=== PATIENT | male | born 1945 | race Caucasian/White ===

== ENCOUNTER → 2017-01-16 | Outpatient (CLI) | payer OTHER, MEDICARE ==
[~2017-01-16] MED LIST: AMLO-110 PO; ASCO10003 PO; ASPI81TA28 PO; CALC-51 PO; CHOL200010 PO; COEN1CAP37 PO; CYAN10004 PO; FLAX12003 PO; INSDGI SQ; LOSA1TAB38 PO; LPT/40 PO; NITR0.4S UT; NRN/300 PO; NVLGI SC; OMEG10007 PO; POTA10CA28 PO; PRT/20 PO; RXC5 PO; TRAZ50TA35 PO; TRIATAB3 PO; VITA400C15 PO
[2017-01-16 13:10] LABS: HEMATOCRIT 44.4 % (42-52); MEAN CELL VOLUME 85.1 fL (80-100); MEAN CORPUSCULAR HEMOGLOBIN 30.1 pg (25-34); RED BLOOD COUNT 5.22 M/uL (4.7-6.1); WHITE BLOOD COUNT 10.44 K/uL (4.8-10.8)
[2017-01-16 13:17] LABS: ALT/SGPT 33 U/L (12-78); AST/SGOT 29 U/L (15-37); BLOOD UREA NITROGEN 21 mg/dl (7-18); BUN/CREATININE RATIO 15.8 (10-20); CALCIUM 9.2 mg/dl (8.5-10.1); CARBON DIOXIDE 31 mmol/L (21-32); CHLORIDE 105 mmol/L (98-107); GLUCOSE 147 mg/dl (70-99); POTASSIUM 3.7 mmol/L (3.5-5.1); SODIUM 141 mmol/L (136-145)
[2017-01-16 13:18] LABS: ALB/GLOB RATIO 0.8 (0.9-2); ALKALINE PHOSPHATASE 94 U/L (45-117)
[2017-01-16 13:25] LABS: MEAN CORPUSCULAR HGB CONC 35.4 g/dl (32-36); PLATELET COUNT 27 K/uL (130-400)
[2017-01-16 13:30] LABS: BASO % 0.3 %; BASO ABS # 0.03 K/uL (0-0.2); COMPLETE YES; EOS % 4.2 %; IG% 0.5 %; LYMPH % 27.6 %; LYMPH ABS # 2.88 K/uL (1.2-3.4); NEUT % 59.4 %; PLT ESTIMATE SIGNIFIC DECREASED
== END | disposition home or self-care (01) ==
LOC: C.LABPVFM 10:40
PROVIDERS: ATTEND Family Medicine
DX: E11.9 Type 2 diabetes mellitus without complications (principal)

== ENCOUNTER → 2017-01-26 | Outpatient (CLI) | payer OTHER, MEDICARE ==
--- NOTE | 2017-01-26 15:07 | DIAGNOSTIC IMAGING REPORT ---
LEFT HAND 3 VIEWS HISTORY: Cellulitis COMPARISON: None. FINDINGS: There is no fracture or dislocation. Diffuse soft tissue swelling. This is most pronounced along the dorsum of the hand. Moderate degenerative changes within the DIP joints. No radiographic evidence for osteomyelitis. No radiopaque foreign bodies. IMPRESSION: Diffuse soft tissue swelling within the left hand. This is most pronounced along the dorsum of the hand. Electronically signed by: All Schultz M.D. 01/26/2017 3:04 PM Dictated Date/Time: 01/26/2017 3:03 PM
== END | disposition home or self-care (01) ==
LOC: C.RAD 14:16
PROVIDERS: ATTEND Family Medicine
DX: L03.90 Cellulitis, unspecified (principal)

== ENCOUNTER → 2017-02-15 | Day surgery (SDC) | payer OTHER, MEDICARE ==
[2017-02-01 10:33] VITALS: Ht 170.2 cm; Wt 113.6 kg
[~2017-02-15] VITALS: Ht 170.2 cm; Wt 113.6 kg
[~2017-02-15] MED LIST changes: +LIDOCAINE HCL 2% 2 ML VIAL (20MG/ML) ONE; +PROPOFOL IV EMULSION 10 MG/ML 20 ML VIAL IV ONE; -RXC5 PO; +SODIUM CHLORIDE 0.9% 500ML 500 ML IV ONE
--- NOTE | 2017-02-15 14:53 | Endo History and Physical ---
History & Physical Date of Service: February 15, 2017. Chief Complaint: ACID RELUX, DYSPHAGIA Referring Physician: DR FISH History of Present Illness dysphagia Past Surgical History Hx Cardiac Surgery: Yes (HEART CATH-1 STENT PLACED) Hx Internal Defibrillator: No Hx Pacemaker: No Hx Abdominal Surgery: Yes (APPY) Hx of Implantable Prosthesis: No Hx Post-Op Nausea and Vomiting: No Hx Cancer Surgery: Yes (SKIN REMOVED FROM NOSE) Hx Thoracic Surgery: No Hx Orthopedic: No Hx Urinary Tract Surgery: Yes (VASECTOMY) Family History Colon CA Social History Smoking Status: Former Smoker Hx Substance Use: No Hx Alcohol Use: Yes (OCCASIONALLY) Allergies Coded Allergies: Lisinopril (Verified Allergy, Mild, COUGH, 02/15/17) Immune Globulin (Verified Adverse Reaction, Intermediate, GAMUNEX- SHAKING , CHILLS, FEVER, 02/15/17) Current Medications Reported Home Medications Medications Dose Route/Sig Max Daily Dose Days Date Category Dose Instructions Protonix (Pantoprazole Sodium) 20 Mg Tab 20 Mg PO QAM 02/01/17 Reported Triamterene/Hctz 37.5-25MG (Triamterene/HCTZ) 1 Tab Tab 1 Tab PO QAM 07/07/16 Reported Calcium (Calcium Carbonate-Vitamin D) 1 Tab Tab 1 Tab PO QAM 07/06/16 Reported Co Q-10 (Coenzyme Q10 (Ubidecarenone)) 200 Mg Cap 200 Mg PO NOON 07/06/16 Reported Flaxseed Oil (Flaxseed (Linseed)) 1 Cap Cap 1 Cap PO HS 07/06/16 Reported Vitamin E (ir-Epnjo-Dbxrfdoywv Acetate) 400 Inter.unit Cap 400 Inter.unit PO DINNER 07/06/16 Reported Vitamin B-12 1000 Mcg (Cyanocobalamin) 1,000 Mcg Tab 1,000 Mcg PO NOON 07/06/16 Reported Vitamin D (Cholecalciferol) 2,000 Unit Cap 2,000 Intunit PO DINNER 07/06/16 Reported Micro-K Ext Rel (Potassium Chloride) 10 Meq Capcr 10 Meq PO NOON 07/06/16 Reported Trazodone (Trazodone HCl) 50 Mg Tab 25 Mg PO HS PRN 07/06/16 Reported Norvasc (Amlodipine Besylate) 5 Mg Tab 5 Mg PO QAM 9/21/16 Reported Cozaar (Losartan Potassium) 100 Mg Tab 100 Mg PO QAM 07/06/16 Reported Lipitor (Atorvastatin) 40 Mg Tab 40 Mg PO HS 07/06/16 Reported Aspirin Ec (Aspirin) 81 Mg Tab 81 Mg PO HS 08/29/15 Reported Vitamin C (Ascorbic Acid) 1,000 Mg Tab 1,000 Mg PO NOON 12/19/13 Reported Novolog (Insulin Aspart) 100 Unit/ Inj 0 SC UD 12/19/13 Reported TAKE BEFORE MEALS PER SLIDING SCALE. Lantus (Insulin Glargine) Vial 35 Units SQ BID 12/19/13 Reported Neurontin (Gabapentin) 300 Mg Cap 600 Mg PO TID 12/19/13 Reported Nitrostat (Nitroglycerin) 0.4 Mg Sub 0.4 Mg UT PRN 12/19/13 Reported [place]-3 (Fish Oil) 1 Ea Cap 1 Cap PO TID 06/13/09 Reported Vital Signs Weight (Kilograms): 113.64 Height (Feet): 5 Height (Inches): 7 Date Time Temp Pulse Resp B/P Pulse Ox O2 Delivery O2 Flow Rate FiO2 02/15/17 13:59 36.4 62 20 153/70 96 Room Air Physical Exam AAO x3 Nl s1s2 Lungs CTA Abd soft NT/ND + BS - CCE Assessment and Plan EGD/dilation
--- NOTE | 2017-02-15 15:02 | Discharge Instructions ---
Endoscopy Patient Instructions Date / Procedure(s) Performed February 15, 2017. EGD Allergy Information Coded Allergies: Lisinopril (Verified Allergy, Mild, COUGH, 02/15/17) Immune Globulin (Verified Adverse Reaction, Intermediate, GAMUNEX- SHAKING , CHILLS, FEVER, 02/15/17) Discharge Date / Findings February 15, 2017. gastritis Medication Instructions Stopped Medication(s): ASPIRIN 81MG 02/14/17 Restart Stopped Medication(s): Reported Home Medications Medications Dose Route/Sig Max Daily Dose Days Date Category Dose Instructions Protonix (Pantoprazole Sodium) 20 Mg Tab 20 Mg PO QAM 02/01/17 Reported Triamterene/Hctz 37.5-25MG (Triamterene/HCTZ) 1 Tab Tab 1 Tab PO QAM 07/07/16 Reported Calcium (Calcium Carbonate-Vitamin D) 1 Tab Tab 1 Tab PO QAM 07/06/16 Reported Co Q-10 (Coenzyme Q10 (Ubidecarenone)) 200 Mg Cap 200 Mg PO NOON 07/06/16 Reported Flaxseed Oil (Flaxseed (Linseed)) 1 Cap Cap 1 Cap PO HS 07/06/16 Reported Vitamin E (qb-Xdntq-Utvbxesmew Acetate) 400 Inter.unit Cap 400 Inter.unit PO DINNER 07/06/16 Reported Vitamin B-12 1000 Mcg (Cyanocobalamin) 1,000 Mcg Tab 1,000 Mcg PO NOON 07/06/16 Reported Vitamin D (Cholecalciferol) 2,000 Unit Cap 2,000 Intunit PO DINNER 07/06/16 Reported Micro-K Ext Rel (Potassium Chloride) 10 Meq Capcr 10 Meq PO NOON 07/06/16 Reported Trazodone (Trazodone HCl) 50 Mg Tab 25 Mg PO HS PRN 07/06/16 Reported Norvasc (Amlodipine Besylate) 5 Mg Tab 5 Mg PO QAM 07/06/16 Reported Cozaar (Losartan Potassium) 100 Mg Tab 100 Mg PO QAM 07/06/16 Reported Lipitor (Atorvastatin) 40 Mg Tab 40 Mg PO HS 07/06/16 Reported Aspirin Ec (Aspirin) 81 Mg Tab 81 Mg PO HS 08/29/15 Reported Vitamin C (Ascorbic Acid) 1,000 Mg Tab 1,000 Mg PO NOON 12/19/13 Reported Novolog (Insulin Aspart) 100 Unit/ Inj 0 SC UD 12/19/13 Reported TAKE BEFORE MEALS PER SLIDING SCALE. Lantus (Insulin Glargine) Vial 35 Units SQ BID 12/19/13 Reported Neurontin (Gabapentin) 300 Mg Cap 600 Mg PO TID 12/19/13 Reported Nitrostat (Nitroglycerin) 0.4 Mg Sub 0.4 Mg UT PRN 12/19/13 Reported [place]-3 (Fish Oil) 1 Ea Cap 1 Cap PO TID 06/13/09 Reported Increase Protonix to 40 mg daily Reported Home Medications Medications Dose Route/Sig Max Daily Dose Days Date Category Dose Instructions Protonix (Pantoprazole Sodium) 20 Mg Tab 20 Mg PO QAM 02/01/17 Reported Triamterene/Hctz 37.5-25MG (Triamterene/HCTZ) 1 Tab Tab 1 Tab PO QAM 07/07/16 Reported Calcium (Calcium Carbonate-Vitamin D) 1 Tab Tab 1 Tab PO QAM 07/06/16 Reported Co Q-10 (Coenzyme Q10 (Ubidecarenone)) 200 Mg Cap 200 Mg PO NOON 07/06/16 Reported Flaxseed Oil (Flaxseed (Linseed)) 1 Cap Cap 1 Cap PO HS 07/06/16 Reported Vitamin E (pr-Xpyzl-Hcioolhjtl Acetate) 400 Inter.unit Cap 400 Inter.unit PO DINNER 07/06/16 Reported Vitamin B-12 1000 Mcg (Cyanocobalamin) 1,000 Mcg Tab 1,000 Mcg PO NOON 07/06/16 Reported Vitamin D (Cholecalciferol) 2,000 Unit Cap 2,000 Intunit PO DINNER 07/06/16 Reported Micro-K Ext Rel (Potassium Chloride) 10 Meq Capcr 10 Meq PO NOON 07/06/16 Reported Trazodone (Trazodone HCl) 50 Mg Tab 25 Mg PO HS PRN 07/06/16 Reported Norvasc (Amlodipine Besylate) 5 Mg Tab 5 Mg PO QAM 07/06/16 Reported Cozaar (Losartan Potassium) 100 Mg Tab 100 Mg PO QAM 07/06/16 Reported Lipitor (Atorvastatin) 40 Mg Tab 40 Mg PO HS 07/06/16 Reported Aspirin Ec (Aspirin) 81 Mg Tab 81 Mg PO HS 08/29/15 Reported Vitamin C (Ascorbic Acid) 1,000 Mg Tab 1,000 Mg PO NOON 12/19/13 Reported Novolog (Insulin Aspart) 100 Unit/ Inj 0 SC UD 12/19/13 Reported TAKE BEFORE MEALS PER SLIDING SCALE. Lantus (Insulin Glargine) Vial 35 Units SQ BID 12/19/13 Reported Neurontin (Gabapentin) 300 Mg Cap 600 Mg PO TID 12/19/13 Reported Nitrostat (Nitroglycerin) 0.4 Mg Sub 0.4 Mg UT PRN 12/19/13 Reported [place]-3 (Fish Oil) 1 Ea Cap 1 Cap PO TID 06/13/09 Reported Increase Protonix to 40 mg daily Provider Instructions Activity Restrictions - No exercising or heavy lifting for 24 hours. - Do not drink alcohol the day of the procedure. - Do not drive a car or operate machinery until the day after the procedure. - Do not make any important decisions or sign important papers in 24 hours after the procedure. Following Day: - Return to full activity which may include returning to work/school. Diet Start your diet with liquids and light foods (jello, soup, juice, toast). Then eat your usual diet if not nauseated. Treatment For Common After Affects For mild abdominal pain, bloating, or excessive gas: - Rest - Eat lightly - Lie on right side Follow-Up Information Follow-up with DR FISH as scheduled Anesthesia Information What You Should Know You have had a procedure that required some medicine to reduce anxiety and discomfort. This treatment is called moderate sedation. After receiving the treatment, you may be sleepy, but you will be able to breathe on your own. The effects of the treatment may last for several hours. Follow these instructions along with Activity/Diet recommendations noted above: * Do NOT do anything where dizziness or clumsiness would be dangerous. * Rest quietly at home today, then you can be up and about tomorrow. * Have a responsible person stay with you the rest of today. * You may have had an I.V. today. If so, you may take the dressing off later today. Recommendations Call your doctor if: * Trouble breathing * Continuous vomiting for more than 24 hours * Temperature above 101 degrees * Severe abdominal pain or bloating * Pain not relieved by pain medicine ordered * There is increased drainage or redness from any incision * A large amount of rectal bleeding greater than 2-3 tablespoons. (If you had a polyp/s removed or have hemorrhoids, a small amount of blood - from the rectum is to be expected.) * You have any unanswered questions or concerns. IN THE EVENT OF A SERIOUS EMERGENCY, GO TO THE NEAREST EMERGENCY ROOM Your discharge instructions were prepared by provider Juvenal Huber. Patient Instructions Signature Page Dave Bowlesbrittney Patient (or Guardian) Signature/Date: I have read and understand the instructions given to me by my caregivers. Caregiver/RN/Doctor Signature/Date: The above-named patient and/or guardian has received patient instructions on this date. + Original Patient Signature Page (only) stays with chart. Please make copy for patient.
--- NOTE | 2017-02-15 15:09 | GI REPORT ---
Procedure Date: 02/15/2017 2:36 PM Procedure: Upper GI endoscopy Indications: Esophageal dysphagia Medicines: Propofol per Anesthesia Complications: No immediate complications. Estimated blood loss: Minimal. Estimated Blood Loss: Estimated blood loss was minimal. Estimated blood loss was minimal. Procedure: Pre-Anesthesia Assessment: - Prior to the procedure, a History and Physical was performed, and patient medications and allergies were reviewed. The patient's tolerance of previous anesthesia was also reviewed. The risks and benefits of the procedure and the sedation options and risks were discussed with the patient. All questions were answered, and informed consent was obtained. Prior Anticoagulants: The patient has taken no previous anticoagulant or antiplatelet agents. ASA Grade Assessment: II - A patient with mild systemic disease. After reviewing the risks and benefits, the patient was deemed in satisfactory condition to undergo the procedure. After obtaining informed consent, the endoscope was passed under direct vision. Throughout the procedure, the patient's blood pressure, pulse, and oxygen saturations were monitored continuously. The scope was introduced through the mouth, and advanced to the second part of duodenum. The upper GI endoscopy was accomplished without difficulty. The patient tolerated the procedure well. Findings: The examined esophagus was normal. The Z-line was regular and was found 45 cm from the incisors. Diffuse mildly erythematous mucosa without bleeding was found in the gastric antrum. Biopsies were taken with a cold forceps for histology. Verification of patient identification for the specimen was done by the physician and electrophysiology technician using the patient's name and medical record number. The examined duodenum was normal. Retained gastric contents are not identified on this exam. The cardia and gastric fundus were normal on retroflexion. The exam of the stomach was otherwise normal. Impression: - Normal esophagus. - Z-line regular, 45 cm from the incisors. - Erythematous mucosa in the antrum. Biopsied. - Normal examined duodenum. Recommendation: - Discharge patient to home (ambulatory). - Resume regular diet. - Use Protonix (pantoprazole) 40 mg PO daily. - Return to referring physician as previously scheduled. MD Juvenal Franco MD 02/15/2017 3:10:10 PM This report has been signed electronically. Note Initiated On: 02/15/2017 2:36 PM I attest to the content of the Intraoperative Record and orders documented therein, exceptions below
--- NOTE | 2017-02-15 15:22 | Anesthesiology Progress Note ---
Anesthesia Post Op Note Date & Time February 15, 2017 at 15:22 Vital Signs Pain Intensity: 0 Vital Signs Past 12 Hours Date Time Temp Pulse Resp B/P Pulse Ox O2 Delivery O2 Flow Rate FiO2 02/15/17 15:20 65 20 128/66 97 Room Air 02/15/17 15:06 36.8 64 20 121/64 96 Room Air 02/15/17 13:59 36.4 62 20 153/70 96 Room Air Notes Mental Status: alert / awake / arousable, participated in evaluation Pt Amnestic to Procedure: Yes Nausea / Vomiting: adequately controlled Pain: adequately controlled Airway Patency, RR, SpO2: stable & adequate BP & HR: stable & adequate Hydration State: stable & adequate Anesthetic Complications: no major complications apparent
[2017-02-15 15:34] VITALS: BP 135/57; PULSE 66; O2SAT 96
== END | disposition home or self-care (01) ==
LOC: C.GI 13:35
PROVIDERS: ATTEND Internal Medicine Gastroenterology
DX: R13.10 Dysphagia, unspecified (principal); Z87.891 Personal history of nicotine dependence; Z90.49 Acquired absence of other specified parts of digestive tract; Z80.0 Family history of malignant neoplasm of digestive organs; M54.40 Lumbago with sciatica, unspecified side; M79.642 Pain in left hand; R89.4 Abnormal immunological findings in specimens from other organs, systems and tissues; D69.3 Immune thrombocytopenic purpura; E55.9 Vitamin D deficiency, unspecified

== ENCOUNTER → 2017-02-15 | Outpatient (CLI) | payer OTHER, MEDICARE ==
[~2017-02-15] MED LIST changes: -LIDOCAINE HCL 2% 2 ML VIAL (20MG/ML) ONE; -PROPOFOL IV EMULSION 10 MG/ML 20 ML VIAL IV ONE; -SODIUM CHLORIDE 0.9% 500ML 500 ML IV ONE
--- NOTE | 2017-02-15 08:59 | DIAGNOSTIC IMAGING REPORT ---
L-SPINE MIN 4 VIEWS ROUTINE CLINICAL HISTORY: R89.4 Nonspecific immunological [id number] low back pain COMPARISON STUDY: 04/13/2011 FINDINGS: There is no pathologic bowel dilatation. There are 5 lumbar type vertebral bodies present. No acute fractures are visualized. There is a minimal grade 1 spondylolisthesis of L5 and S1. No destructive lesions are evident. IMPRESSION: 1. No acute fractures 2. Grade 1 spondylolisthesis of L5 on S1 Electronically signed by: Daniel Munson M.D. 02/15/2017 8:57 AM Dictated Date/Time: 02/15/2017 8:55 AM
[2017-02-15 10:39] LABS: BASO % 0.4 %; BASO ABS # 0.05 K/uL (0-0.2); COMPLETE YES; EOS % 5.7 %; HEMATOCRIT 43.7 % (42-52); IG% 0.6 %; LYMPH % 27.3 %; LYMPH ABS # 3.13 K/uL (1.2-3.4); MEAN CELL VOLUME 88.3 fL (80-100); MEAN CORPUSCULAR HEMOGLOBIN 30.5 pg (25-34); MEAN CORPUSCULAR HGB CONC 34.6 g/dl (32-36); MEAN PLATELET VOLUME 10.5 fL (7.4-10.4); MONO % 6.9 %; NEUT % 59.1 %; PLATELET COUNT 28 K/uL (130-400); RED BLOOD COUNT 4.95 M/uL (4.7-6.1); WHITE BLOOD COUNT 11.48 K/uL (4.8-10.8)
[2017-02-20 13:10] LABS: ANTI-CENTROMERE AB <1.0 NEG AI (<1.0 NEG); ANTI-SS-A <1.0 NEG AI (<1.0 NEG); ANTI-SS-B <1.0 NEG AI (<1.0 NEG); DNA ds CRITHIDIA NEGATIVE (NEGATIVE); Sm Antibody <1.0 NEG AI (<1.0 NEG)
== END | disposition home or self-care (01) ==
LOC: C.RAD1850 08:36
PROVIDERS: ATTEND Internal Medicine Rheumatology
DX: M54.40 Lumbago with sciatica, unspecified side (principal); M79.642 Pain in left hand; R89.4 Abnormal immunological findings in specimens from other organs, systems and tissues; D69.3 Immune thrombocytopenic purpura; E55.9 Vitamin D deficiency, unspecified

== ENCOUNTER → 2017-05-18 | Outpatient (CLI) | payer OTHER, MEDICARE ==
[2017-05-18 13:00] LABS: BLOOD UREA NITROGEN 19 mg/dl (7-18); BUN/CREATININE RATIO 14.8 (10-20); CALCIUM 8.6 mg/dl (8.5-10.1); CARBON DIOXIDE 29 mmol/L (21-32); CHLORIDE 108 mmol/L (98-107); GLUCOSE 162 mg/dl (70-99); PHOSPHORUS 2.7 mg/dl (2.5-4.9); POTASSIUM 3.6 mmol/L (3.5-5.1); SODIUM 141 mmol/L (136-145)
[2017-05-18 13:06] LABS: CHOLESTEROL/HDL RATIO 4.3; ESTIMATED AVERAGE GLUCOSE 166 mg/dl; HA1C FLAG Normal (Normal)
[2017-05-18 13:19] LABS: MEAN CELL VOLUME 87.5 fL (80-100); MEAN CORPUSCULAR HEMOGLOBIN 29.4 pg (25-34); MEAN CORPUSCULAR HGB CONC 33.6 g/dl (32-36); RED BLOOD COUNT 5.03 M/uL (4.7-6.1); WHITE BLOOD COUNT 8.41 K/uL (4.8-10.8)
[2017-05-18 13:29] LABS: MEAN PLATELET VOLUME 11.1 fL (7.4-10.4)
[2017-05-18 13:31] LABS: PLATELET COUNT 26 K/uL (130-400)
[2017-05-18 13:32] LABS: BASO % 0.4 %; BASO ABS # 0.03 K/uL (0-0.2); COMPLETE YES; ECHINOCYTES 1+; EOS % 4.4 %; IG% 0.2 %; LYMPH % 27.7 %; LYMPH ABS # 2.33 K/uL (1.2-3.4); MONO % 7.6 %; NEUT % 59.7 %; PLT ESTIMATE SIGNIFIC DECREASED
== END | disposition home or self-care (01) ==
LOC: C.LABPVFM 09:12
PROVIDERS: ATTEND Family Medicine
DX: R80.9 Proteinuria, unspecified (principal); E11.49 Type 2 diabetes mellitus with other diabetic neurological complication; Z79.4 Long term (current) use of insulin; D69.3 Immune thrombocytopenic purpura; E78.5 Hyperlipidemia, unspecified

== ENCOUNTER → 2017-09-22 | Outpatient (CLI) | payer OTHER, MEDICARE ==
[2017-09-22 18:46] LABS: HEMATOCRIT 44.3 % (42-52); MEAN CELL VOLUME 87.2 fL (80-100); MEAN CORPUSCULAR HEMOGLOBIN 30.1 pg (25-34); MEAN CORPUSCULAR HGB CONC 34.5 g/dl (32-36); PLATELET COUNT 31 K/uL (130-400); RED BLOOD COUNT 5.08 M/uL (4.7-6.1); WHITE BLOOD COUNT 10.38 K/uL (4.8-10.8)
[2017-09-22 19:49] LABS: BASO % 0.4 %; BASO ABS # 0.04 K/uL (0-0.2); COMPLETE YES; EOS % 4.5 %; IG% 0.6 %; LYMPH % 29.9 %; MONO % 6.3 %; NEUT % 58.3 %
[2017-09-23 06:43] LABS: ESTIMATED AVERAGE GLUCOSE 180 mg/dl; HA1C FLAG Normal (Normal)
== END | disposition home or self-care (01) ==
LOC: C.LABPVFM 14:43
PROVIDERS: ATTEND Family Medicine
DX: D69.6 Thrombocytopenia, unspecified (principal); E11.49 Type 2 diabetes mellitus with other diabetic neurological complication; E66.01 Morbid (severe) obesity due to excess calories

== ENCOUNTER → 2017-12-13 | Outpatient (CLI) | payer OTHER, MEDICARE | END | disposition home or self-care (01) | LOC: C.PATHSPEC 17:16 | PROVIDERS: ATTEND Urology | DX: R31.29 Other microscopic hematuria (principal); R30.0 Dysuria; N40.1 Benign prostatic hyperplasia with lower urinary tract symptoms ==

== ENCOUNTER → 2017-12-15 | Outpatient (CLI) | payer OTHER, MEDICARE ==
--- NOTE | 2017-12-15 17:57 | DIAGNOSTIC IMAGING REPORT ---
L VENOUS DOPP LOWER EXT UNILAT CLINICAL HISTORY: 72 years-old Male presenting with M79.89 Swelling of lower extremity. TECHNIQUE: Real-time grayscale and color and spectral Doppler ultrasound imaging of the veins of the left lower extremity was performed. Compression and augmentation were also utilized. COMPARISON: None. FINDINGS: Left: Common femoral vein: Patent. Greater saphenous vein: Patent. Deep femoral vein: Patent. Femoral vein: Patent. Popliteal vein: Patent. Calf veins: Patent. Other: Subcutaneous edema noted in the anterior lower leg. IMPRESSION: 1. No evidence of deep venous thrombosis. 2. Subcutaneous edema. Electronically signed by: Ignacio Roberson M.D. 12/15/2017 5:56 PM Dictated Date/Time: 12/15/2017 5:56 PM
[2017-12-15 18:23] LABS: ALBUMIN 3.2 gm/dl (3.4-5.0); ALT/SGPT 35 U/L (12-78); BLOOD UREA NITROGEN 19 mg/dl (7-18); CALCIUM 8.8 mg/dl (8.5-10.1); CARBON DIOXIDE 29 mmol/L (21-32); CREATININE 1.43 mg/dl (0.60-1.40); GLUCOSE 222 mg/dl (70-99); POTASSIUM 3.3 mmol/L (3.5-5.1); SODIUM 139 mmol/L (136-145)
[2017-12-15 18:26] LABS: ALKALINE PHOSPHATASE 94 U/L (45-117); AST/SGOT 29 U/L (15-37); TOTAL PROTEIN 7.5 gm/dl (6.4-8.2)
[2017-12-15 19:20] LABS: HEMATOCRIT 40.6 % (42-52); HEMOGLOBIN 14.2 g/dL (14.0-18.0); MEAN CELL VOLUME 84.9 fL (80-100); MEAN CORPUSCULAR HEMOGLOBIN 29.7 pg (25-34); PLATELET COUNT 23 K/uL (130-400); WHITE BLOOD COUNT 10.76 K/uL (4.8-10.8)
== END | disposition home or self-care (01) ==
LOC: C.ULTR 17:20
PROVIDERS: ATTEND Nurse Practitioner Adult Health
DX: M79.89 Other specified soft tissue disorders (principal); R31.29 Other microscopic hematuria; R30.0 Dysuria; N40.1 Benign prostatic hyperplasia with lower urinary tract symptoms; L03.90 Cellulitis, unspecified; R60.0 Localized edema

== ENCOUNTER 2018-01-09 17:35 | Inpatient (IN) | payer OTHER, MEDICARE ==
[~2018-01-09] VITALS: Ht 167.6 cm; Wt 127.4 kg
[2018-01-09] MEDS ORDERED: VANCOMYCIN IV 2,500 MG in SODIUM CHLORIDE 0.9% 500ML 500 ML IV STA (17:51)
[2018-01-09] MEDS ORDERED: LABETALOL HCL IV 5 MG/ML 20ML IV STA (17:53)
--- NOTE | 2018-01-09 17:58 | EMERGENCY ROOM VISIT NOTE ---
History Report prepared by Piotr: Alpa Bloom Under the Supervision of: Dr. Nik Ellis M.D. First contact with patient: 17:43 Chief Complaint: REFERRED BY DOCTOR Stated Complaint: LEFT LUNG INFECTION History of Present Illness The patient is a 72 year old male who presents to the Emergency Room with complaints of worsening left lower leg cellulitis for the past 5 weeks. The patient fell on 12/02/17 and injured the left leg. states that he had a puncture wound on the leg that resulted in cellulitis. He has been on multiple antibiotics for this cellulitis. He reports that the redness has improved slightly but the swelling has worsened. The patient had an US of the left leg about 2-3 weeks ago. The patient states that he is having intermittent shooting , burning pains in the leg that he rates as a 2/10 in severity. He has a history of DM and reports sugars between 150-200 recently. The patient denies LOC, fevers, chest pain, shortness of breath, nausea, vomiting, loss of appetite , abdominal pain, and diarrhea. He denies any history of MRSA. Source of History: patient, spouse/significant other Onset: 5 weeks ago Position: leg (left) Symptom Intensity: 2/10 Quality: other (cellulitis) Timing: worsening Modifying Factors (Worsening): other (injury to leg) Modifying Factors (Relieving): other (antibiotics) Associated Symptoms: No LOC, No fevers, No chest pain, No SOB, No nausea, No vomiting, No abdominal pain, No diarrhea Review of Systems See HPI for pertinent positives & negatives. A total of 10 systems reviewed and were otherwise negative. Past Medical & Surgical Medical Problems: (1) COPD (chronic obstructive pulmonary disease) (2) Coronary artery disease (3) Diabetes (4) Hypertension (5) ITP (idiopathic thrombocytopenic purpura) (6) Right rotator cuff tear Surgical Problems: (1) S/P appendectomy Family History No pertinent history stated. Social History Smoking Status: Former Smoker Marital Status: Housing Status: lives with significant other Occupation Status: retired Current/Historical Medications Scheduled Amlodipine (Norvasc), 5 MG PO QAM Ascorbic Acid (Vitamin C), 1,000 MG PO NOON Aspirin (Aspirin Ec), 81 MG PO HS Atorvastatin (Lipitor), 40 MG PO HS Calcium Carbonate-Vitamin D (Calcium), 1 TAB PO QAM Cholecalciferol (Vitamin D), 2,000 INTUNIT PO DAILY Coenzyme Q10 (Ubidecarenone) (Co Q-10), 200 MG PO NOON Cyanocobalamin (Vitamin B-12 1000 Mcg), 1,000 MCG PO Q2D Fish Oil ([place]-3), 1 CAP PO DAILY Gabapentin (Neurontin), 600 MG PO TID Insulin Aspart (Novolog), 50-100 UNITS SQ AC Insulin Glargine (Lantus), 60 UNITS SQ AMPM Losartan Potassium (Cozaar), 100 MG PO QAM Nitroglycerin (Nitrostat), 0.4 MG UT PRN Pantoprazole (Protonix), 40 MG PO DAILY Potassium Chloride (Micro-K Ext Rel), 10 MEQ PO Q2D Tocopheryl Acet,Dl-Alpha (Vitamin E/Dl-Alpha), 400 UNITS PO DAILY Trazodone Hcl (Trazodone), 25 MG PO HS Triamterene/Hctz (Maxzide 75MG/50MG), 0.5 TAB PO DAILY Allergies Coded Allergies: Lisinopril (Verified Allergy, Mild, COUGH, 01/09/18) Immune Globulin (Verified Adverse Reaction, Intermediate, GAMUNEX- SHAKING , CHILLS, FEVER, 01/09/18) Physical Exam Vital Signs Date Time Temp Pulse Resp B/P (MAP) Pulse Ox O2 Delivery O2 Flow Rate FiO2 01/09/18 18:33 69 18 177/76 96 Room Air 01/09/18 18:12 64 18 156/59 96 01/09/18 18:03 73 181/89 97 Room Air 01/09/18 17:39 36.6 78 22 242/106 97 Room Air Physical Exam GENERAL: Patient is well appearing and in minimal distress, overweight. EYES: No scleral icterus, unremarkable pupils. ENT: Mucous membranes moist, no nasal congestion. NECK: No masses appreciated, no meningismus, trachea is midline. RESPIRATORY: No dyspnea. Clear to auscultation and equal bilaterally. No wheeze , no rhonchi. CARDIOVASCULAR: Regular rate and rhythm. No murmurs, rubs, gallops appreciated. GASTROINTESTINAL: Abdomen soft, nontender, no peritonitis. Bowel sounds positive. No masses appreciated. BACK: No midline tenderness, no CVA tenderness EXTREMITIES: Swelling and edema to left lower leg from the knee down with anterior cellulitis extended beyond markers. Slight discoloration of the left food with mildly decreased pulses, no tenderness to palpation of the calf or mallory. FROM of toes and ankle without pain. NEUROLOGIC: Alert and oriented, no acute motor or sensory deficits, no focal weakness, cranial nerves grossly intact. SKIN: No rash, no jaundice, no diaphoresis. Medical Decision & Procedures ER Provider Diagnostic Interpretation: Radiology results and stated below per my review and radiologist interpretation: L TIBIA/FIBULA 2 VIEWS ROUTINE CLINICAL HISTORY: left tibial injury 4 weeks ago, recurrent infectio pain COMPARISON: None. DISCUSSION: The bones and joint spaces appear intact. There is no evidence of fracture, dislocation or bony disease. Considerable soft tissue edematous change. IMPRESSION: 1. No acute bony abnormality. 2. Generalized soft tissue edematous change The above report was generated using voice recognition software. It may contain grammatical, syntax or spelling errors. Electronically signed by: Segundo Clement M.D. 01/09/2018 6:14 PM Dictated Date/Time: 01/09/2018 6:13 PM L VENOUS DOPP LOWER EXT UNILAT CLINICAL HISTORY: left lower leg swelling and infection pain. Edema. TECHNIQUE: Venous Doppler COMPARISON STUDY: None FINDINGS: Normal study. No evidence for deep venous thrombosis. Soft tissue edema. IMPRESSION: 1. No evidence for deep venous thrombosis. 2. Soft tissue edema. The above report was generated using voice recognition software. It may contain grammatical, syntax or spelling errors. Electronically signed by: Segundo Clement M.D. 01/09/2018 7:18 PM Dictated Date/Time: 01/09/2018 7:17 PM Laboratory Results 01/09/18 18:05 Red Blood Count 4.56, Mean Corpuscular Volume 87.1, Mean Corpuscular Hemoglobin 29.6, Mean Corpuscular Hemoglobin Concent 34.0, Mean Platelet Volume 11.7, Neutrophils (%) (Auto) 69.6, Lymphocytes (%) (Auto) 19.4, Monocytes (%) (Auto) 5.7, Eosinophils (%) (Auto) 4.7, Basophils (%) (Auto) 0.2, Neutrophils # (Auto) 7.88, Lymphocytes # (Auto) 2.20, Monocytes # (Auto) 0.64, Eosinophils # (Auto) 0.53, Basophils # (Auto) 0.02 01/09/18 18:05 Test 01/09/18 18:05 01/09/18 18:10 White Blood Count 11.32 K/uL (4.8-10.8) Red Blood Count 4.56 M/uL (4.7-6.1) Hemoglobin 13.5 g/dL (14.0-18.0) Hematocrit 39.7 % (42-52) Mean Corpuscular Volume 87.1 fL (80-100) Mean Corpuscular Hemoglobin 29.6 pg (25-34) Mean Corpuscular Hemoglobin Concent 34.0 g/dl (32-36) Platelet Count 23 K/uL (130-400) Mean Platelet Volume 11.7 fL (7.4-10.4) Neutrophils (%) (Auto) 69.6 % Lymphocytes (%) (Auto) 19.4 % Monocytes (%) (Auto) 5.7 % Eosinophils (%) (Auto) 4.7 % Basophils (%) (Auto) 0.2 % Neutrophils # (Auto) 7.88 K/uL (1.4-6.5) Lymphocytes # (Auto) 2.20 K/uL (1.2-3.4) Monocytes # (Auto) 0.64 K/uL (0.11-0.59) Eosinophils # (Auto) 0.53 K/uL (0-0.5) Basophils # (Auto) 0.02 K/uL (0-0.2) RDW Standard Deviation 43.6 fL (36.4-46.3) RDW Coefficient of Variation 13.8 % (11.5-14.5) Immature Granulocyte % (Auto) 0.4 % Immature Granulocyte # (Auto) 0.05 K/uL (0.00-0.02) Nucleated RBC Absolute Count (auto) 0.02 K/uL (0-0) Nucleated Red Blood Cells % 0.2 % Platelet Estimate SIGNIFIC DECREASED Anion Gap 5.0 mmol/L (3-11) Est Creatinine Clear Calc Drug Dose 63.8 ml/min Estimated GFR () 60.7 Estimated GFR (Non- 52.3 BUN/Creatinine Ratio 13.7 (10-20) Calcium Level 8.7 mg/dl (8.5-10.1) C-Reactive Protein 1.31 mg/dl (0-0.29) Vancomycin Level Trough < 0.8 mcg/ml (SEE COMMENT) Bedside Lactic Acid Venous 1.37 mmol/L (0.90-1.70) Laboratory results as reviewed by me. Medications Administered Medications (Trade) Dose Ordered Sig/Sarahi Route Start Time Stop Time Status Last Admin Dose Admin Vancomycin HCl 2500 mg/Sodium Chloride 550 ml @ 200 mls/hr ONE STAT IV 01/09/18 17:51 01/09/18 20:36 DC 01/09/18 18:34 200 MLS/HR Labetalol HCl (Normodyne IV) 10 mg NOW STAT IV 01/09/18 17:53 01/09/18 17:54 DC 01/09/18 18:06 10 MG ED Course 1742: The patient was evaluated in room A10. A complete history and physical exam was performed. 1750: Vancomycin HCl 2500 mg/Sodium Chloride 550 ml @ 200 mls/hr IV 1752: Labetalol HCl 10 mg IV 1918: I reassessed the patient at this time. He is feeling better and resting comfortably. I discussed the results and treatment plan with the patient. I answered all pertaining questions that he had. He expressed understanding and verbalized agreement. 1921: I spoke with Dr. Norman. We discussed the patient's case. The patient will be evaluated by the [facility] for further management. Medical Decision Differential: DVT, CHF, Arterial Occlusion, Infectious, Joint Effusion, Trauma, Lymphedema, Idiopathic, Trauma, amongst other pathologies entertained. 72 yr old male arrives for evaluation of left lower leg cellulitis. Diabetic with injury to mallory 4 weeks ago and persistent cellulitis despite 3 different antibiotics and now cellulitis is extending. Not septic and no evidence of bacteremia at this time. Pulses intact though clearly fair amount of edema left lower leg. No evidence osteo. Repeat US without evidence DVT. Given failure outpatient will need to come in. Plts at there baseline levels. Empiric Vanco as skin infection failed outpatient. Medication Reconcilliation Current Medication List: was personally reviewed by me Blood Pressure Screening Patient's blood pressure: Elevated blood pressure Blood pressure disposition: Referred to PCP Consults Time Called: 1914 Consulting Physician: Dr. Norman Returned Call: [address] Norman. We discussed the patient's case. The patient will be evaluated by the [facility] for further management. Impression Primary Impression: Left leg cellulitis Additional Impressions: Failure of outpatient treatment Thrombocytopenia Scribe Attestation The scribe's documentation has been prepared under my direction and personally reviewed by me in its entirety. I confirm that the note above accurately reflects all work, treatment, procedures, and medical decision making performed by me. Departure Information Dispostion Being Evaluated By Hospitalist Referrals Lynn Maddox M.D. (PCP) Patient Instructions My [facility] Health Problem Qualifiers
[2018-01-09] MEDS ORDERED: VANCOMYCIN CONSULT ACTIVE PRN ×2 (18:00→19:45)
--- NOTE | 2018-01-09 18:15 | DIAGNOSTIC IMAGING REPORT ---
L TIBIA/FIBULA 2 VIEWS ROUTINE CLINICAL HISTORY: left tibial injury 4 weeks ago, recurrent infectio pain COMPARISON: None. DISCUSSION: The bones and joint spaces appear intact. There is no evidence of fracture, dislocation or bony disease. Considerable soft tissue edematous change. IMPRESSION: 1. No acute bony abnormality. 2. Generalized soft tissue edematous change The above report was generated using voice recognition software. It may contain grammatical, syntax or spelling errors. Electronically signed by: Segundo Clement M.D. 01/09/2018 6:14 PM Dictated Date/Time: 01/09/2018 6:13 PM
[2018-01-09 18:38] LABS: CALCIUM 8.7 mg/dl (8.5-10.1); CREATININE 1.36 mg/dl (0.60-1.40); POTASSIUM 3.4 mmol/L (3.5-5.1)
[2018-01-09 18:44] LABS: HEMATOCRIT 39.7 % (42-52); HEMOGLOBIN 13.5 g/dL (14.0-18.0); MEAN CELL VOLUME 87.1 fL (80-100); MEAN CORPUSCULAR HEMOGLOBIN 29.6 pg (25-34); MEAN PLATELET VOLUME 11.7 fL (7.4-10.4); NUCLEATED RED BLOOD CELL ABS 0.02 K/uL (0-0); PLATELET COUNT 23 K/uL (130-400); RED CELL DISTRIBUTION WIDTH CV 13.8 % (11.5-14.5); RED CELL DISTRIBUTION WIDTH SD 43.6 fL (36.4-46.3); WHITE BLOOD COUNT 11.32 K/uL (4.8-10.8)
[2018-01-09 18:46] LABS: BASO % 0.2 %; BASO ABS # 0.02 K/uL (0-0.2); EOS % 4.7 %; EOS ABS # 0.53 K/uL (0-0.5); IG# 0.05 K/uL (0.00-0.02); LYMPH % 19.4 %; MONO % 5.7 %; MONO ABS # 0.64 K/uL (0.11-0.59); NEUT % 69.6 %; NEUT ABS # 7.88 K/uL (1.4-6.5)
[2018-01-09] MEDS ORDERED: NVLG SQ (19:01)
[2018-01-09] MEDS ORDERED: VTME400 PO (19:01)
[2018-01-09] MEDS ORDERED: TRIA75TA53 PO (19:01)
[2018-01-09] MEDS ORDERED: INSDGI SQ (19:01)
[2018-01-09] MEDS ORDERED: PANT40TA PO (19:04)
--- NOTE | 2018-01-09 19:19 | DIAGNOSTIC IMAGING REPORT ---
L VENOUS DOPP LOWER EXT UNILAT CLINICAL HISTORY: left lower leg swelling and infection pain. Edema. TECHNIQUE: Venous Doppler COMPARISON STUDY: None FINDINGS: Normal study. No evidence for deep venous thrombosis. Soft tissue edema. IMPRESSION: 1. No evidence for deep venous thrombosis. 2. Soft tissue edema. The above report was generated using voice recognition software. It may contain grammatical, syntax or spelling errors. Electronically signed by: Segundo Clement M.D. 01/09/2018 7:18 PM Dictated Date/Time: 01/09/2018 7:17 PM
[2018-01-09] MEDS ORDERED: NON-FORMULARY MEDICATION (Coenzyme Q10 (Ubidecarenone) (Co Q-10) 200 MG) PO SCH (19:45)
[2018-01-09] MEDS ORDERED: PIPERACILL/TAZOBAC CONSULT ACTIVE PRN (19:45)
[2018-01-09] MEDS ORDERED: HydrALAZINE HCL 20 MG/ML VIAL IV. PRN (20:15)
[2018-01-09] MEDS ORDERED: ONDANSETRON INJ 2 MG/ML 2 ML VIAL IV PRN (20:15)
--- NOTE | 2018-01-09 20:37 | History and Physical ---
History & Physical Date & Time of Service: Jan 09, 2018 at 20:17 Chief Complaint: Left Lung Infection Primary Care Physician: Lynn Maddox M.D. History of Present Illness Source: patient Mr. Valles is a 72yo C male with multiple medical problems to include DM on insulin therapy with neuropathy, CAD s/p stent in 2012, HTN, ITP with baseline platelets 20-30 and GERD. Patient states that he fell on 2017 an injured his left lower leg. He states that he has had increased swelling since the date of injury. He has been seen by his PCP and completed 3 courses of outpatient antibiotics. He states that it has been worsening over the last week. His skin was marked last Monday at his outpatient clinic and his redness and swelling has progressed beyond the neto. He denies fevers, chills, malaise, nausea, vomiting. Denies pain or crepitus in the leg. No additional complaints. ER Course: Vancomycin 550mg, Labetalol 10mg IV x 1 Past Medical/Surgical History Medical Problems: (1) COPD (chronic obstructive pulmonary disease) (2) Coronary artery disease s/p stent (3) Diabetes (4) Hypertension (5) ITP (idiopathic thrombocytopenic purpura) Surgical Problems: (1) S/P appendectomy (2) Cyst removed in left groin 11/2017 Family History Colon CA - mother CAD Social History Lives with sister Former smoker - quit in 1984 Social EtOH - 3-4 drinks/week No recreational drug use Active and independent in ADLs Smoking Status: Former Smoker Smokeless Tobacco Use: No Alcohol Use: socially Drug Use: none Marital Status: single Housing status: lives with family Occupational Status: retired Immunizations History of Influenza Vaccine: Yes History of Tetanus Vaccine?: Yes Tetanus Immunization Date: Aug 16, 2008 History of Pneumococcal: Yes History of Hepatitis B Vaccine: No Allergies Coded Allergies: Lisinopril (Verified Allergy, Mild, COUGH, 01/09/18) Immune Globulin (Verified Adverse Reaction, Intermediate, GAMUNEX- SHAKING , CHILLS, FEVER, 01/09/18) Home Medications Scheduled Amlodipine (Norvasc), 5 MG PO QAM Ascorbic Acid (Vitamin C), 1,000 MG PO NOON Aspirin (Aspirin Ec), 81 MG PO HS Atorvastatin (Lipitor), 40 MG PO HS Calcium Carbonate-Vitamin D (Calcium), 1 TAB PO QAM Cholecalciferol (Vitamin D), 2,000 INTUNIT PO DAILY Coenzyme Q10 (Ubidecarenone) (Co Q-10), 200 MG PO NOON Cyanocobalamin (Vitamin B-12 1000 Mcg), 1,000 MCG PO Q2D Fish Oil ([place]-3), 1 CAP PO DAILY Gabapentin (Neurontin), 600 MG PO TID Insulin Aspart (Novolog), 50-100 UNITS SQ AC Insulin Glargine (Lantus), 60 UNITS SQ AMPM Losartan Potassium (Cozaar), 100 MG PO QAM Nitroglycerin (Nitrostat), 0.4 MG UT PRN Pantoprazole (Protonix), 40 MG PO DAILY Potassium Chloride (Micro-K Ext Rel), 10 MEQ PO Q2D Tocopheryl Acet,Dl-Alpha (Vitamin E/Dl-Alpha), 400 UNITS PO DAILY Trazodone Hcl (Trazodone), 25 MG PO HS Triamterene/Hctz (Maxzide 75MG/50MG), 0.5 TAB PO DAILY Review of Systems Constitutional: No fever, No chills, No sweats, No weakness, No fatigue Eyes: No redness Respiratory: No cough, No wheezing, No dyspnea on exertion Cardiovascular: No chest pain, No palpitations Abdomen: No pain, No nausea, No vomiting, No diarrhea Neurologic: No weakness Endocrine: No fatigue Hematologic / Lymphatic: No abnormal bleeding/bruising Physical Exam Vital Signs Date Time Temp Pulse Resp B/P (MAP) Pulse Ox O2 Delivery O2 Flow Rate FiO2 01/09/18 18:33 69 18 177/76 96 Room Air 01/09/18 18:12 64 18 156/59 96 01/09/18 18:03 73 181/89 97 Room Air 01/09/18 17:39 36.6 78 22 242/106 97 Room Air General: pleasant, NAD, AA&O x 4 Skin - warm, dry, intact, redness to LLE described below, no petechiae HEENT: NC/AT, PERRL, EOMI, anicteric sclera, conjunctiva without injection, MMM , no JVD, neck supple Heart: +S1/S2, regualar, no m/r/g Lungs: equal air entry bilaterally, no rales/rhonchi/wheezes Abd: obese, +BS, soft, NT/ND, no masses, organomegaly Ext: warm, well perfused, 1+ pitting edema RLE, LLE with well demarcated area of warmth and redness, +edema, skin flaking. No streaking, no bullae, no crepitus, no pain with palpation. Left groin site with minimal amount of purulent discharge on gauze, no cellulitus Neuro: grossly intact, no focal deficits Diagnostics Laboratory Results Results Past 24 Hours Test 01/09/18 18:05 01/09/18 18:10 Range/Units White Blood Count 11.32 4.8-10.8 K/uL Red Blood Count 4.56 4.7-6.1 M/uL Hemoglobin 13.5 14.0-18.0 g/dL Hematocrit 39.7 42-52 % Mean Corpuscular Volume 87.1 80-100 fL Mean Corpuscular Hemoglobin 29.6 25-34 pg Mean Corpuscular Hemoglobin Concent 34.0 32-36 g/dl Platelet Count 23 130-400 K/uL Mean Platelet Volume 11.7 7.4-10.4 fL Neutrophils (%) (Auto) 69.6 % Lymphocytes (%) (Auto) 19.4 % Monocytes (%) (Auto) 5.7 % Eosinophils (%) (Auto) 4.7 % Basophils (%) (Auto) 0.2 % Neutrophils # (Auto) 7.88 1.4-6.5 K/uL Lymphocytes # (Auto) 2.20 1.2-3.4 K/uL Monocytes # (Auto) 0.64 0.11-0.59 K/uL Eosinophils # (Auto) 0.53 0-0.5 K/uL Basophils # (Auto) 0.02 0-0.2 K/uL RDW Standard Deviation 43.6 36.4-46.3 fL RDW Coefficient of Variation 13.8 11.5-14.5 % Immature Granulocyte % (Auto) 0.4 % Immature Granulocyte # (Auto) 0.05 0.00-0.02 K/uL Nucleated RBC Absolute Count (auto) 0.02 0-0 K/uL Nucleated Red Blood Cells % 0.2 % Platelet Estimate SIGNIFIC DECREASED Sodium Level 139 136-145 mmol/L Potassium Level 3.4 3.5-5.1 mmol/L Chloride Level 105 98-107 mmol/L Carbon Dioxide Level 29 21-32 mmol/L Anion Gap 5.0 3-11 mmol/L Blood Urea Nitrogen 19 7-18 mg/dl Creatinine 1.36 0.60-1.40 mg/dl Est Creatinine Clear Calc Drug Dose 63.8 ml/min Estimated GFR () 60.7 Estimated GFR (Non- 52.3 BUN/Creatinine Ratio 13.7 10-20 Random Glucose 204 70-99 mg/dl Calcium Level 8.7 8.5-10.1 mg/dl C-Reactive Protein 1.31 0-0.29 mg/dl Vancomycin Level Trough < 0.8 SEE COMMENT mcg/ml Bedside Lactic Acid Venous 1.37 0.90-1.70 mmol/L Microbiology Results 01/09/18 Blood Culture, Received Pending 01/09/18 Blood Culture, Received Pending Diagnostic Radiology L VENOUS DOPP LOWER EXT UNILAT CLINICAL HISTORY: left lower leg swelling and infection pain. Edema. TECHNIQUE: Venous Doppler COMPARISON STUDY: None FINDINGS: Normal study. No evidence for deep venous thrombosis. Soft tissue edema. IMPRESSION: 1. No evidence for deep venous thrombosis. 2. Soft tissue edema. L TIBIA/FIBULA 2 VIEWS ROUTINE CLINICAL HISTORY: left tibial injury 4 weeks ago, recurrent infectio pain COMPARISON: None. DISCUSSION: The bones and joint spaces appear intact. There is no evidence of fracture, dislocation or bony disease. Considerable soft tissue edematous change. IMPRESSION: 1. No acute bony abnormality. 2. Generalized soft tissue edematous change The above report was generated using voice recognition software. It may contain grammatical, syntax or spelling errors. Impression Assessment and Plan 72yo C male with diabetes presenting with LLE cellulitis - failure of outpatient antibiotic therapy. Patient is presently afebrile, hemodynamically stable, no evidence of systemic infection or deep tissue infection on exam 1. Cellulitis - in diabetic patient, outpatient antibiotic regimen x 3 failed -Admit to general medicine -IV antibiotics with Vancomycin and Zosyn -Monitor redness and swelling -Blood cultures pending -Infectious disease consultation per the discretion of day team 2. Diabetes - BS presently 204 -Check A1c -Continue home insulin regimen - Lantus 60 units BID and ISS -Continue Neurontin at home dosage for neuropathy -Diabetic diet 3. HTN - BP presently elevated at 177/76 -Continue home medication regimen - Amlodipine 5mg po daily, Cozaar 100mg po daily, Triamterene/HCTZ -Hydralazine as needed for SBP >180mmHg -Continue to monitor 4. CAD - stable. -Continue daily ASA 81mg and Atorvastatin 40mg 5. ITP - patient is near baseline platelet level. No active bleeding. Continue to monitor. 6. Left groin site - patient states that he had a cyst removed in November and has experienced persistent drainage from the site. -Wound care consultation -Keep area clean and dry -Nystatin powder to skin folds 7. GERD - stable. Continue home Protonix 8. F/E/N - 1L NSS at 125mL/hr with 40mEq KCL, monitor electrolytes and replete as needed, diabetic diet as above 9. Ppx - Lovenox for DVT prophylaxis 10. Code - Full code per discussion with patient 11. Dispo - admit to medical floor Resuscitation Status VTE Prophylaxis Will order VTE Prophylaxis: Yes
[2018-01-09] MEDS: NYSTATIN POWDER 15GM BTL EXT SCH (21:00)
[2018-01-09] MEDS ORDERED: INSULIN GLARGINE SOLOSTAR 100 UNITS/ML 3 ML PEN SQ SCH (21:00)
[2018-01-09] MEDS ORDERED: PIPERACILL/TAZOBAC IV 4.5 GM in DEXTROSE 5% 100ML 100 ML IV STA (21:54)
[2018-01-09] MEDS ORDERED: POTASSIUM CHLORIDE INJ 40 MEQ in SODIUM CHLORIDE 0.9% 1000ML 1,000 ML IV SCH (22:00)
[2018-01-09 22:01] VITALS: BP 186/99; PULSE 70; TEMP 36.6; O2SAT 95; BMI 45.3
[2018-01-09] MEDS: ASPIRIN 81 MG ECTAB PO SCH (22:44)
[2018-01-09] MEDS: TRAZODONE HCL 50 MG TAB PO SCH (22:45)
[2018-01-09] MEDS: GABAPENTIN 600 MG TAB PO SCH (22:45)
[2018-01-09] MEDS: ATORVASTATIN 40 MG TAB PO SCH (22:46)
[2018-01-09] MEDS: INSULIN GLARGINE SQ SCH (22:50)
--- NOTE | 2018-01-10 02:03 | Pharmacy Progress Note ---
Pharmacy Antibiotic Consult Date of Service: Jan 10, 2018. Pharmacy Dosing Scope Pharmacy is consulted to initiate Vancomycin/Zosyn IV dosing therapy, order appropriate labs and adjust drug dose/frequency. Subjective The patient is a 72 year old male admitted on Jan 09, 2018 at 20:12. Objective Height (Feet): 5 Height (Inches): 6.00 Weight (Kilograms): 127.400 Lab Results (24hrs): Test 01/09/18 18:05 01/09/18 18:10 White Blood Count 11.32 K/uL (4.8-10.8) Red Blood Count 4.56 M/uL (4.7-6.1) Hemoglobin 13.5 g/dL (14.0-18.0) Hematocrit 39.7 % (42-52) Mean Corpuscular Volume 87.1 fL (80-100) Mean Corpuscular Hemoglobin 29.6 pg (25-34) Mean Corpuscular Hemoglobin Concent 34.0 g/dl (32-36) Platelet Count 23 K/uL (130-400) Mean Platelet Volume 11.7 fL (7.4-10.4) Neutrophils (%) (Auto) 69.6 % Lymphocytes (%) (Auto) 19.4 % Monocytes (%) (Auto) 5.7 % Eosinophils (%) (Auto) 4.7 % Basophils (%) (Auto) 0.2 % Neutrophils # (Auto) 7.88 K/uL (1.4-6.5) Lymphocytes # (Auto) 2.20 K/uL (1.2-3.4) Monocytes # (Auto) 0.64 K/uL (0.11-0.59) Eosinophils # (Auto) 0.53 K/uL (0-0.5) Basophils # (Auto) 0.02 K/uL (0-0.2) RDW Standard Deviation 43.6 fL (36.4-46.3) RDW Coefficient of Variation 13.8 % (11.5-14.5) Immature Granulocyte % (Auto) 0.4 % Immature Granulocyte # (Auto) 0.05 K/uL (0.00-0.02) Nucleated RBC Absolute Count (auto) 0.02 K/uL (0-0) Nucleated Red Blood Cells % 0.2 % Platelet Estimate SIGNIFIC DECREASED Sodium Level 139 mmol/L (136-145) Potassium Level 3.4 mmol/L (3.5-5.1) Chloride Level 105 mmol/L (98-107) Carbon Dioxide Level 29 mmol/L (21-32) Anion Gap 5.0 mmol/L (3-11) Blood Urea Nitrogen 19 mg/dl (7-18) Creatinine 1.36 mg/dl (0.60-1.40) Est Creatinine Clear Calc Drug Dose 63.8 ml/min Estimated GFR () 60.7 Estimated GFR (Non- 52.3 BUN/Creatinine Ratio 13.7 (10-20) Random Glucose 204 mg/dl (70-99) Calcium Level 8.7 mg/dl (8.5-10.1) C-Reactive Protein 1.31 mg/dl (0-0.29) Vancomycin Level Trough < 0.8 mcg/ml (SEE COMMENT) Hepatitis C Antibody Screen NEG (NEG) Bedside Lactic Acid Venous 1.37 mmol/L (0.90-1.70) Micro Results: Item Value Date Time Blood Culture Received 01/09/181834 Blood Pending Blood Culture Received 01/09/181804 Blood Pending Assessment & Plan ASSESSMENT: * Mr Valles is a 72yo diabetic male, who injured his L leg in a fall 12/02/17. * Patient has completed 3 courses of antibiotics as an outpatient (unsure of medications). * Patient is afebrile. No evidence of osteomyelitis. Blood cultures pending. PLAN: Vancomycin: * Loading dose: Vanc 2500 mg (~20mg/kg) IV x1 dose in ED, then: * Vancomycin 1500 mg (~12mg/kg) IV every 18 hours. * Vanc dosed conservatively d/t likelihood of accumulation in obese pt population (BMI 45.4kg/m2) * Estimated p'kinetic parameters (based on CrCl ~64mL/min): * Ke ~ 0.057/hr t1/2 ~ 12.2hr * Goal trough level estimate: ~15 mcg/mL, for cellulitis pending C/S results * Will evaluate vanc trough level prior to the 3rd or 4th maintenance dose Zosyn: * Zosyn 4.5gm IV x1 dose over 30 min, then * Zosyn 4.5gm IV q8h, extended 4-hr infusion * More aggressive regimen selected d/t BMI > 35 Pharmacy will continue to follow and will adjust dose/frequency as necessary. Thank you
[2018-01-10 06:59] LABS: HEMOGLOBIN A1C 7.5 % (4.5-5.6)
[2018-01-10 08:35] VITALS: O2SAT 95
[2018-01-10 08:50] VITALS: BP 195/98; PULSE 64; TEMP 36.6; O2SAT 97
[2018-01-10] MEDS: CHOLECALCIFEROL 1000 INTER.UNIT TAB PO SCH (08:56)
[2018-01-10] MEDS: PANTOprazole SOD 40 MG TAB PO SCH (08:56)
[2018-01-10] MEDS: AMLODIPINE BESYLATE 5 MG TAB PO SCH (08:57)
[2018-01-10] MEDS: OMEGA-3 (PURIFIED FISH OIL) 1 GM CAP PO SCH (08:57)
[2018-01-10] MEDS: LOSARTAN POTASSIUM 50 MG TAB PO SCH (08:57)
[2018-01-10] MEDS: ENOXAPARIN 40 MG/0.4 ML SYR SQ SCH (08:58)
[2018-01-10] MEDS ORDERED: CYANOCOBALAMIN 500 MCG TAB (VIT B-12) PO SCH (09:00)
[2018-01-10] MEDS: NYSTATIN POWDER 15GM BTL EXT SCH ×2 (09:00→21:00)
[2018-01-10] MEDS: TRIAMTERENE/HCTZ 37.5/25MG TAB PO SCH (09:02)
[2018-01-10] MEDS: CALCIUM 600MG + VIT D 400 IU TAB PO SCH (09:02)
[2018-01-10 09:03] LABS: CALCIUM 8.3 mg/dl (8.5-10.1); CREATININE 1.25 mg/dl (0.60-1.40); POTASSIUM 3.6 mmol/L (3.5-5.1)
[2018-01-10 09:04] LABS: BASO % 0.3 %; BASO ABS # 0.03 K/uL (0-0.2); EOS % 4.8 %; EOS ABS # 0.44 K/uL (0-0.5); HEMATOCRIT 40.2 % (42-52); HEMOGLOBIN 13.7 g/dL (14.0-18.0); IG# 0.05 K/uL (0.00-0.02); LYMPH % 20.9 %; LYMPH ABS # 1.93 K/uL (1.2-3.4); MEAN CELL VOLUME 86.6 fL (80-100); MEAN CORPUSCULAR HEMOGLOBIN 29.5 pg (25-34); MEAN CORPUSCULAR HGB CONC 34.1 g/dl (32-36); MONO % 5.6 %; MONO ABS # 0.52 K/uL (0.11-0.59); NEUT % 67.9 %; NEUT ABS # 6.25 K/uL (1.4-6.5); PLATELET COUNT 19 K/uL (130-400); RED CELL DISTRIBUTION WIDTH SD 43.4 fL (36.4-46.3); WHITE BLOOD COUNT 9.22 K/uL (4.8-10.8)
[2018-01-10] MEDS: INSULIN ASPART 100 UNITS/ML 3 ML PEN SQ SCH ×3 (09:05→17:29)
[2018-01-10] MEDS: INSULIN GLARGINE SQ SCH ×2 (09:07→21:00)
[2018-01-10] MEDS: GABAPENTIN 600 MG TAB PO SCH ×3 (09:08→21:00)
--- NOTE | 2018-01-10 09:43 | Family Medicine Progress Note ---
Progress Note Date of Service Jan 10, 2018.
[2018-01-10] MEDS: PIPERACILL/TAZOBAC IV 4.5 GM in DEXTROSE 5% 100ML IV SCH ×2 (09:45→17:29)
[2018-01-10] MEDS ORDERED: VANCOMYCIN IV 1,500 MG in SODIUM CHLORIDE 0.9% 500ML 500 ML IV SCH (10:00)
[2018-01-10] MEDS ORDERED: HydrALAZINE HCL 20 MG/ML VIAL IV. PRN (10:00)
--- NOTE | 2018-01-10 10:05 | Pharmacy Progress Note ---
Pharmacy Abx Dose Short Note Date of Service Jan 10, 2018. Assessment & Plan Pt's renal fxn looks to be close to baseline. Agree with conservative dosing of Vancomycin d/t pt's habitus; however, adjusting dosing interval from q18 ---> q14. Trough ordered for 01/12/18 @ 0330. Goal trough until c/s's result 15-20mcg/ mL. Goal trough for cellulitis ~15mcg/mL. Pharmacy will continue to follow and will adjust dose/frequency as necessary. Thank you.
--- NOTE | 2018-01-10 11:37 | Family Medicine Progress Note ---
Progress Note Date of Service Jan 10, 2018. Subjective Pt evaluation today including: conversation w/ patient Found patient sleeping comfortably, wakes easily. Denies any particular complaints this morning. Says his left calf has been swollen for about five weeks now and wonders when that will resolve. Denies any noted pain around area of erythema. No other acute c/o. Constitutional: No fever, No chills Respiratory: No cough, No shortness of breath Cardiovascular: + edema, No chest pain Abdomen: No pain, No nausea, No vomiting, No diarrhea Musculoskeletal: + swelling (left calf) Medications Current Inpatient Medications Medications (Trade) Dose Ordered Sig/Sarahi Route Start Time Stop Time Status Last Admin Dose Admin Amlodipine Besylate (Norvasc Tab) 5 mg QAM PO 01/10/18 09:00 02/09/18 08:59 Aspirin (Ecotrin Tab) 81 mg HS PO 01/09/18 21:00 02/08/18 20:59 01/09/18 22:44 81 MG Atorvastatin Calcium (Lipitor Tab) 40 mg HS PO 01/09/18 21:00 02/08/18 20:59 01/09/18 22:46 40 MG Cyanocobalamin (Vitamin B-12 Tab) 1,000 mcg Q2D@0900 PO 01/10/18 09:00 02/09/18 08:59 Fish Oil (Elwin-3 (Purified Fish Oil) Cap) 1 gm DAILY PO 01/10/18 09:00 02/09/18 08:59 Gabapentin (Neurontin Tab) 600 mg TID PO 01/09/18 21:00 02/08/18 20:59 01/09/18 22:45 600 MG Insulin Aspart (novoLOG ASPART) as directed- pt u... AC SQ 01/10/18 06:30 02/09/18 07:59 Losartan Potassium (coZAAR TAB) 100 mg QAM PO 01/10/18 09:00 02/09/18 08:59 Pantoprazole Sodium (Protonix Tab) 40 mg DAILY PO 01/10/18 09:00 02/09/18 08:59 Trazodone HCl (Desyrel Tab) 25 mg HS PO 01/09/18 21:00 02/08/18 20:59 01/09/18 22:45 25 MG Ascorbic Acid (Vitamin C Tab) 1,000 mg DAILY@1200 PO 01/10/18 12:00 02/09/18 11:59 Calcium/Vitamin D (Caltrate Plus Tab) 1 tab DAILY PO 01/10/18 09:00 02/09/18 08:59 Cholecalciferol (Vitamin D Tab) 2,000 inter.unit DAILY PO 01/10/18 09:00 02/09/18 08:59 Triamterene/HCTZ (Maxzide 37.5/25 Tab) 1 tab DAILY PO 01/10/18 09:00 02/09/18 08:59 Vancomycin HCl 1500 mg/Sodium Chloride 530 ml @ 200 mls/hr Q18H IV 01/10/18 10:00 01/20/18 09:59 Miscellaneous Information (Consult) 1 ea UD PRN N/A 01/09/18 19:45 02/08/18 19:44 Miscellaneous Information (Consult) 1 ea UD PRN N/A 01/09/18 19:45 02/08/18 19:44 Enoxaparin Sodium (Lovenox Inj) 40 mg Q24H SQ 01/10/18 09:00 02/09/18 08:59 Ondansetron HCl (Zofran Inj) 4 mg Q6H PRN IV 01/09/18 20:15 02/08/18 20:14 Insulin Glargine (Lantus Vial) 60 units BID SQ 01/09/18 21:00 02/08/18 20:59 01/09/18 22:50 60 UNITS Hydralazine HCl (HydrALAZINE INJ) 5 mg Q4 PRN IV. 01/09/18 20:15 02/08/18 20:14 Nystatin (Mycostatin Powder) 1 appln BID EXT 01/09/18 21:00 02/08/18 20:59 Objective Vital Signs Date Time Temp Pulse Resp B/P (MAP) Pulse Ox O2 Delivery O2 Flow Rate FiO2 01/10/18 00:00 Room Air 01/09/18 22:01 36.6 70 20 186/99 95 Room Air 01/09/18 21:21 67 20 162/75 95 01/09/18 20:19 63 18 166/70 96 Room Air 01/09/18 18:33 69 18 177/76 96 Room Air 01/09/18 18:12 64 18 156/59 96 01/09/18 18:03 73 181/89 97 Room Air 01/09/18 17:39 36.6 78 22 242/106 97 Room Air Physical Exam Notes: General Appearance: Awake, alert & oriented, comfortable in general, NAD. CV: +S1S2 RRR, no murmur. No peripheral edema. Pulm: Clear to auscultation throughout. Abdomen: +BS, soft, non-tender, non-distended. Extremities: The left calf has generalized erythema near-circumferentially up to a couple cm below the patella. This area is still within previously demarcated skin pen lines (of unknown placement time). The area is not notably warm and not particularly tender to palpation. The bilateral distal feet have 1 + edema as well. Distal cap refill < 2 seconds. Patient says he has baseline DM neuropathy with decreased sensation throughout his BLE, but says present sensation seems at his baseline. Able to move ankles and knees without difficulty. Neuro: No gross neuro deficits. Laboratory Results 01/10/18 08:20 Red Blood Count 4.64, Mean Corpuscular Volume 86.6, Mean Corpuscular Hemoglobin 29.5, Mean Corpuscular Hemoglobin Concent 34.1, Neutrophils (%) (Auto) 67.9, Lymphocytes (%) (Auto) 20.9, Monocytes (%) (Auto) 5.6, Eosinophils (%) (Auto) 4.8, Basophils (%) (Auto) 0.3, Neutrophils # (Auto) 6.25, Lymphocytes # (Auto) 1.93, Monocytes # (Auto) 0.52, Eosinophils # (Auto) 0.44, Basophils # (Auto) 0.03 01/10/18 08:20 Test 01/09/18 18:05 01/09/18 18:10 01/10/18 07:42 01/10/18 08:20 White Blood Count 11.32 K/uL (4.8-10.8) 9.22 K/uL (4.8-10.8) Red Blood Count 4.56 M/uL (4.7-6.1) 4.64 M/uL (4.7-6.1) Hemoglobin 13.5 g/dL (14.0-18.0) 13.7 g/dL (14.0-18.0) Hematocrit 39.7 % (42-52) 40.2 % (42-52) Mean Corpuscular Volume 87.1 fL (80-100) 86.6 fL (80-100) Mean Corpuscular Hemoglobin 29.6 pg (25-34) 29.5 pg (25-34) Mean Corpuscular Hemoglobin Concent 34.0 g/dl (32-36) 34.1 g/dl (32-36) Platelet Count 23 K/uL (130-400) 19 K/uL (130-400) Mean Platelet Volume 11.7 fL (7.4-10.4) Neutrophils (%) (Auto) 69.6 % 67.9 % Lymphocytes (%) (Auto) 19.4 % 20.9 % Monocytes (%) (Auto) 5.7 % 5.6 % Eosinophils (%) (Auto) 4.7 % 4.8 % Basophils (%) (Auto) 0.2 % 0.3 % Neutrophils # (Auto) 7.88 K/uL (1.4-6.5) 6.25 K/uL (1.4-6.5) Lymphocytes # (Auto) 2.20 K/uL (1.2-3.4) 1.93 K/uL (1.2-3.4) Monocytes # (Auto) 0.64 K/uL (0.11-0.59) 0.52 K/uL (0.11-0.59) Eosinophils # (Auto) 0.53 K/uL (0-0.5) 0.44 K/uL (0-0.5) Basophils # (Auto) 0.02 K/uL (0-0.2) 0.03 K/uL (0-0.2) Nucleated RBC Absolute Count (auto) 0.02 K/uL (0-0) Nucleated Red Blood Cells % 0.2 % Estimated Average Glucose 169 mg/dl Hemoglobin A1c 7.5 % (4.5-5.6) C-Reactive Protein 1.31 mg/dl (0-0.29) Vancomycin Level Trough < 0.8 mcg/ml (SEE COMMENT) Hepatitis C Antibody Screen NEG (NEG) Bedside Lactic Acid Venous 1.37 mmol/L (0.90-1.70) Bedside Glucose 131 mg/dl (70-99) RDW Standard Deviation 43.4 fL (36.4-46.3) RDW Coefficient of Variation 14.0 % (11.5-14.5) Immature Granulocyte % (Auto) 0.5 % Immature Granulocyte # (Auto) 0.05 K/uL (0.00-0.02) Platelet Estimate SIGNIFIC DECREASED Anion Gap 6.0 mmol/L (3-11) Est Creatinine Clear Calc Drug Dose 69.4 ml/min Estimated GFR () 67.2 Estimated GFR (Non- 58.0 BUN/Creatinine Ratio 12.1 (10-20) Calcium Level 8.3 mg/dl (8.5-10.1) Assessment and Plan 72 yo male admitted on [id number] for left lower extremity cellulitis after failed outpatient antibiotic therapy. LLE cellulitis: Noted initially s/p fall on with ongoing erythema and swelling to the area. Has been on a cephalosporin (not sure which one), then cefdinir, then Bactrim DS. ? Also trial of Clobetasol 0.05%. Admitted for concern for failed outpatient management. Started on vancomycin and zosyn here. BCx x 2 pending. However, at present he is very comfortable, afebrile, WBC 9, and not really tender at all on leg palpation. An ongoing/ worsening cellulitis is unclear at this point. - Ordering soft tissue u/s of leg to look for any pockets of abscess. Left groin site: Patient states that he had a cyst removed in November and has experienced persistent drainage from the site. Two noted areas of drainage this morning. Wound care consulted. - Will obtain local u/s to eval for pocket size and need for I&D. Is already on antibiotics for leg as noted above. -- Nystatin powder to skin folds DM2: Hx of same. On lantus and ISS. On neurontin. HTN: On home Amlodipine 5mg po daily, Cozaar 100mg po daily, Triamterene/HCTZ. - Consider Hydralazine as needed for SBP >180mmHg CAD: Stable. On daily ASA 81mg and Atorvastatin 40mg ITP: Patient is near baseline platelet level, perhaps a little lower. No active bleeding. Continue to monitor. GERD: Stable. Continue home Protonix Code status: Full code. Diet: DM2 diet. DVT prophy: Lovenox. PT/OT: Deferred. Disbo: Admit to medical floor. Resident Tracking Resident Involvement: Resident Care Provided Care Provided: Adult Hospital Medicine (inpatient) Assessment/Plan Resident Physician Supervision Note: I was present with Dr. Dimas during the history and exam. I discussed the case with the resident and agree with the findings and plan as documented in the note. Any exceptions or clarifications are listed here. On evaluation, patient LLE wound is nontender, warm and without areas of focal induration which would be indicative of cellulitis/abscess with good distal sensation on examination. The left lower abdominal chronic draining wound is similarly concerning. At present, agree w/ US to evaluate for underlying collections and wound care consultation for assistance in management.
[2018-01-10 12:02] VITALS: BMI 45.3
[2018-01-10] MEDS: ASCORBIC ACID 500 MG TAB PO SCH (12:08)
[2018-01-10 12:30] VITALS: Ht 167.6 cm; Wt 127.4 kg
[2018-01-10 16:00] VITALS: O2SAT 97
[2018-01-10 16:16] VITALS: BP 169/77; PULSE 61; TEMP 36.5; O2SAT 95
--- NOTE | 2018-01-10 16:19 | DIAGNOSTIC IMAGING REPORT ---
ABDOMEN LIMITED (US) HISTORY: Pain. Infection. cellulitis and low right abd/inguinal abscess. COMPARISON: None. FINDINGS: Evaluation of the left lower abdominal region shows presence of a complex linear hypoechoic region within the subcutaneous fat measuring 4 x 4 x 1 cm. This suggestive of potential phlegmon. A well-defined cystic pocket is not appreciated. . No additional regions are identified. IMPRESSION: 4 x 4 x 1 cm subcutaneous phlegmon type process overlying the left lower abdominal region. No evidence for a drainable fluid or abscess pocket collection. The above report was generated using voice recognition software. It may contain grammatical, syntax or spelling errors. Electronically signed by: Segundo Clement M.D. 01/10/2018 4:18 PM Dictated Date/Time: 01/10/2018 4:15 PM
--- NOTE | 2018-01-10 16:29 | DIAGNOSTIC IMAGING REPORT ---
L EXTREMITY NONVASCULAR LIMITED CLINICAL HISTORY: LT GARRIDO/CALF ABSCESS pain. Edema. TECHNIQUE: Ultrasound COMPARISON STUDY: None FINDINGS: Generalized soft tissue edematous change anterior to the tibia. No evidence for abscess or collection. IMPRESSION: Generalized soft tissue edema. No evidence for abscess or collection. The above report was generated using voice recognition software. It may contain grammatical, syntax or spelling errors. Electronically signed by: Segundo Clement M.D. 01/10/2018 4:27 PM Dictated Date/Time: 01/10/2018 4:26 PM
[2018-01-10] MEDS: TRAZODONE HCL 50 MG TAB PO SCH (21:00)
[2018-01-10] MEDS: ASPIRIN 81 MG ECTAB PO SCH (21:00)
[2018-01-10] MEDS: ATORVASTATIN 40 MG TAB PO SCH (21:00)
[2018-01-10 23:11] VITALS: BP 167/82; PULSE 69; TEMP 36.7; O2SAT 94
[2018-01-11] MEDS: VANCOMYCIN IV 1,500 MG in SODIUM CHLORIDE 0.9% 500ML 500 ML IV SCH ×2 (00:01→14:00)
[2018-01-11] MEDS: PIPERACILL/TAZOBAC IV 4.5 GM in DEXTROSE 5% 100ML IV SCH ×2 (03:18→09:31)
[2018-01-11 07:18] VITALS: BP 191/95; PULSE 65; TEMP 36.4; O2SAT 96
[2018-01-11] MEDS: AMLODIPINE BESYLATE 5 MG TAB PO SCH (07:51)
[2018-01-11] MEDS: OMEGA-3 (PURIFIED FISH OIL) 1 GM CAP PO SCH (07:51)
[2018-01-11] MEDS: LOSARTAN POTASSIUM 50 MG TAB PO SCH (07:52)
[2018-01-11] MEDS: ASCORBIC ACID 500 MG TAB PO SCH (07:52)
[2018-01-11] MEDS: PANTOprazole SOD 40 MG TAB PO SCH (07:52)
[2018-01-11] MEDS: CHOLECALCIFEROL 1000 INTER.UNIT TAB PO SCH (07:53)
[2018-01-11] MEDS: CALCIUM 600MG + VIT D 400 IU TAB PO SCH (07:53)
[2018-01-11] MEDS: GABAPENTIN 600 MG TAB PO SCH (07:53)
[2018-01-11] MEDS: TRIAMTERENE/HCTZ 37.5/25MG TAB PO SCH (07:54)
[2018-01-11] MEDS: NYSTATIN POWDER 15GM BTL EXT SCH (07:54)
[2018-01-11] MEDS: ENOXAPARIN 40 MG/0.4 ML SYR SQ SCH (07:58)
[2018-01-11] MEDS: INSULIN ASPART 100 UNITS/ML 3 ML PEN SQ SCH ×2 (08:03→12:31)
[2018-01-11] MEDS: INSULIN GLARGINE SQ SCH (08:03)
--- NOTE | 2018-01-11 08:13 | Family Medicine Progress Note ---
Progress Note Date of Service Jan 11, 2018. Subjective Pt evaluation today including: conversation w/ patient Found patient sitting by the side of the bed, eating breakfast. Says that his leg feels itchy but otherwise seems unchanged. Denies any particular pain to the leg or around his abdominal draining wound. He notes no particular complaints this morning. Constitutional: No fever, No chills Respiratory: No cough, No shortness of breath Cardiovascular: + edema (bilateral legs), No chest pain Abdomen: No pain, No nausea, No vomiting, No diarrhea Skin: + rash, + itch Medications Current Inpatient Medications Medications (Trade) Dose Ordered Sig/Sarahi Route Start Time Stop Time Status Last Admin Dose Admin Amlodipine Besylate (Norvasc Tab) 5 mg QAM PO 01/10/18 09:00 02/09/18 08:59 01/11/18 07:51 5 MG Aspirin (Ecotrin Tab) 81 mg HS PO 01/09/18 21:00 02/08/18 20:59 01/09/18 22:44 81 MG Atorvastatin Calcium (Lipitor Tab) 40 mg HS PO 01/09/18 21:00 02/08/18 20:59 01/09/18 22:46 40 MG Cyanocobalamin (Vitamin B-12 Tab) 1,000 mcg Q2D@0900 PO 01/10/18 09:00 02/09/18 08:59 01/10/18 08:56 1,000 MCG Fish Oil (Winslow-3 (Purified Fish Oil) Cap) 1 gm DAILY PO 01/10/18 09:00 02/09/18 08:59 01/11/18 07:51 1 GM Gabapentin (Neurontin Tab) 600 mg TID PO 01/09/18 21:00 02/08/18 20:59 01/11/18 07:53 600 MG Insulin Aspart (novoLOG ASPART) as directed- pt u... AC SQ 01/10/18 06:30 02/09/18 07:59 01/11/18 08:03 7 UNITS Losartan Potassium (coZAAR TAB) 100 mg QAM PO 01/10/18 09:00 02/09/18 08:59 01/11/18 07:52 100 MG Pantoprazole Sodium (Protonix Tab) 40 mg DAILY PO 01/10/18 09:00 02/09/18 08:59 01/11/18 07:52 40 MG Trazodone HCl (Desyrel Tab) 25 mg HS PO 01/09/18 21:00 02/08/18 20:59 01/09/18 22:45 25 MG Ascorbic Acid (Vitamin C Tab) 1,000 mg DAILY@1200 PO 01/10/18 12:00 02/09/18 11:59 01/11/18 07:52 1,000 MG Calcium/Vitamin D (Caltrate Plus Tab) 1 tab DAILY PO 01/10/18 09:00 02/09/18 08:59 01/11/18 07:53 1 TAB Cholecalciferol (Vitamin D Tab) 2,000 inter.unit DAILY PO 01/10/18 09:00 02/09/18 08:59 01/11/18 07:53 2,000 INTER.UNIT Triamterene/HCTZ (Maxzide 37.5/25 Tab) 1 tab DAILY PO 01/10/18 09:00 02/09/18 08:59 01/11/18 07:54 1 TAB Miscellaneous Information (Consult) 1 ea UD PRN N/A 01/09/18 19:45 02/08/18 19:44 Miscellaneous Information (Consult) 1 ea UD PRN N/A 01/09/18 19:45 02/08/18 19:44 Enoxaparin Sodium (Lovenox Inj) 40 mg Q24H SQ 01/10/18 09:00 02/09/18 08:59 01/11/18 07:58 40 MG Ondansetron HCl (Zofran Inj) 4 mg Q6H PRN IV 01/09/18 20:15 02/08/18 20:14 Insulin Glargine (Lantus Vial) 60 units BID SQ 01/09/18 21:00 02/08/18 20:59 01/11/18 08:03 60 UNITS Nystatin (Mycostatin Powder) 1 appln BID EXT 01/09/18 21:00 02/08/18 20:59 01/11/18 07:54 1 APPLN Piperacillin Sod/ Tazobactam Sod 4.5 gm/Dextrose 120 ml @ 30 mls/hr Q8H IV 01/10/18 09:00 01/20/18 08:59 01/11/18 03:18 30 MLS/HR Hydralazine HCl (HydrALAZINE INJ) 10 mg Q6H PRN IV. 01/10/18 10:00 02/08/18 20:14 Vancomycin HCl 1500 mg/Sodium Chloride 530 ml @ 200 mls/hr Q14H IV 01/11/18 00:00 01/21/18 00:00 01/11/18 00:01 200 MLS/HR Diphenhydramine HCl (Benadryl Cap) 50 mg Q6H PRN PO 01/11/18 08:00 02/10/18 07:59 UNV Objective Vital Signs Date Time Temp Pulse Resp B/P (MAP) Pulse Ox O2 Delivery O2 Flow Rate FiO2 01/11/18 07:18 36.4 65 16 191/95 (127) 96 Room Air 01/11/18 00:00 Room Air 01/10/18 23:11 36.7 69 18 167/82 (110) 94 Room Air 01/10/18 20:00 Room Air 01/10/18 16:16 36.5 61 18 169/77 (107) 95 Room Air 01/10/18 16:00 97 Room Air 01/10/18 08:50 36.6 64 16 195/98 (130) 97 Room Air 01/10/18 08:35 95 Room Air Physical Exam Notes: General Appearance: Awake, alert & oriented, comfortable in general, NAD. CV: +S1S2 RRR, no murmur. No peripheral edema. Pulm: Clear to auscultation throughout. Abdomen: +BS, soft, non-tender, non-distended. Bandaged lower abdominal wound with two (few-mm in diameter) draining areas. Extremities: The left calf has generalized erythema near-circumferentially up to a couple cm below the patella. This area is still within previously demarcated skin pen lines (of unknown placement time). The area is not notably warm and not particularly tender to palpation. The bilateral distal feet have 1 + edema as well. Distal cap refill < 2 seconds. Patient says he has baseline DM neuropathy with decreased sensation throughout his BLE, but says present sensation seems at his baseline. Able to move ankles and knees without difficulty. [All grossly unchanged from 28Mar exam.] Neuro: No gross neuro deficits. Laboratory Results 01/11/18 08:07 Red Blood Count 4.75, Mean Corpuscular Volume 86.7, Mean Corpuscular Hemoglobin 29.7, Mean Corpuscular Hemoglobin Concent 34.2, Neutrophils (%) (Auto) 67.6, Lymphocytes (%) (Auto) 21.0, Monocytes (%) (Auto) 5.7, Eosinophils (%) (Auto) 4.8, Basophils (%) (Auto) 0.3, Neutrophils # (Auto) 7.03, Lymphocytes # (Auto) 2.18, Monocytes # (Auto) 0.59, Eosinophils # (Auto) 0.50, Basophils # (Auto) 0.03 01/11/18 08:07 Test 01/11/18 07:37 01/11/18 08:07 Bedside Glucose 100 mg/dl (70-99) White Blood Count 10.39 K/uL (4.8-10.8) Red Blood Count 4.75 M/uL (4.7-6.1) Hemoglobin 14.1 g/dL (14.0-18.0) Hematocrit 41.2 % (42-52) Mean Corpuscular Volume 86.7 fL (80-100) Mean Corpuscular Hemoglobin 29.7 pg (25-34) Mean Corpuscular Hemoglobin Concent 34.2 g/dl (32-36) Platelet Count 20 K/uL (130-400) Neutrophils (%) (Auto) 67.6 % Lymphocytes (%) (Auto) 21.0 % Monocytes (%) (Auto) 5.7 % Eosinophils (%) (Auto) 4.8 % Basophils (%) (Auto) 0.3 % Neutrophils # (Auto) 7.03 K/uL (1.4-6.5) Lymphocytes # (Auto) 2.18 K/uL (1.2-3.4) Monocytes # (Auto) 0.59 K/uL (0.11-0.59) Eosinophils # (Auto) 0.50 K/uL (0-0.5) Basophils # (Auto) 0.03 K/uL (0-0.2) RDW Standard Deviation 43.3 fL (36.4-46.3) RDW Coefficient of Variation 13.9 % (11.5-14.5) Immature Granulocyte % (Auto) 0.6 % Immature Granulocyte # (Auto) 0.06 K/uL (0.00-0.02) Giant Platelets 1+ Anion Gap 4.0 mmol/L (3-11) Est Creatinine Clear Calc Drug Dose 62.9 ml/min Estimated GFR () 59.6 Estimated GFR (Non- 51.4 BUN/Creatinine Ratio 11.1 (10-20) Calcium Level 8.5 mg/dl (8.5-10.1) Assessment and Plan IN PROGRESS 72 yo male admitted on [id number] for left lower extremity cellulitis after failed outpatient antibiotic therapy. LLE cellulitis: Noted initially s/p fall on 17Feb with ongoing erythema and swelling to the area. Has been on a cephalosporin (not sure which one), then cefdinir, then Bactrim DS. ? Also trial of Clobetasol 0.05%. 27Mar began both vancomycin and zosyn. 27Mar BCx x 2 no growth to date. However, at present he is very comfortable, afebrile, WBC 9-10, and not really tender at all on leg palpation. An ongoing/worsening cellulitis is unclear at this point. 28Mar left soft tissue u/s was suggestive of edema without abscess. - Ordering soft tissue u/s of leg to look for any pockets of abscess. Left lower abdomen wound: Patient states that he had a cyst removed in November and has experienced persistent drainage from the site. Two noted areas of drainage. 28Mar local soft tissue u/s noted 4 x 4 x 1 cm subcutaneous phlegmon without evidence of abscess. Wound care onboard. Is already on antibiotics for leg as noted above. - Nystatin powder to skin folds DM2 and diabetic neuropathy: History of same. HbA1c here 7.5. On lantus and ISS. On neurontin for peripheral neuropathy. HTN: On home Amlodipine 5 mg po daily, Cozaar 100 mg po daily, Triamterene/ HCTZ. - Consider Hydralazine prn for SBP > 180. Elevated Creatinine: This am noted Cr 1.38 (and drug Cr Clr 62.9). Only prior comparison in record is 1.43 back on 15Dec2017. Monitoring. CAD: Stable. On daily ASA 81mg and Atorvastatin 40mg ITP: Patient is near baseline platelet level, perhaps a little lower. No evidence of active bleeding. Continue to monitor. GERD: Stable. Continue home Protonix Code status: Full code. Diet: DM2 diet. DVT prophy: Lovenox. PT/OT: Deferred. Disbo: Admit to medical floor. Resident Tracking Resident Involvement: Resident Care Provided Care Provided: Adult Hospital Medicine (inpatient)
[2018-01-11 08:31] LABS: HEMATOCRIT 41.2 % (42-52); HEMOGLOBIN 14.1 g/dL (14.0-18.0); MEAN CELL VOLUME 86.7 fL (80-100); MEAN CORPUSCULAR HEMOGLOBIN 29.7 pg (25-34); MEAN CORPUSCULAR HGB CONC 34.2 g/dl (32-36); PLATELET COUNT 20 K/uL (130-400); RED CELL DISTRIBUTION WIDTH CV 13.9 % (11.5-14.5); RED CELL DISTRIBUTION WIDTH SD 43.3 fL (36.4-46.3); WHITE BLOOD COUNT 10.39 K/uL (4.8-10.8)
[2018-01-11 08:39] LABS: BASO % 0.3 %; BASO ABS # 0.03 K/uL (0-0.2); EOS % 4.8 %; IG# 0.06 K/uL (0.00-0.02); LYMPH ABS # 2.18 K/uL (1.2-3.4); MONO % 5.7 %; MONO ABS # 0.59 K/uL (0.11-0.59); NEUT % 67.6 %; NEUT ABS # 7.03 K/uL (1.4-6.5)
[2018-01-11 08:47] LABS: CALCIUM 8.5 mg/dl (8.5-10.1); CREATININE 1.38 mg/dl (0.60-1.40); POTASSIUM 3.3 mmol/L (3.5-5.1)
[2018-01-11] MEDS ORDERED: POTASSIUM CHLORIDE 20 MEQ TABCR PO ONE (11:00)
[2018-01-11] MEDS ORDERED: DOXY100C76 PO (14:00)
--- NOTE | 2018-01-11 14:07 | Discharge Instructions ---
Discharge Instructions Date of Service Jan 11, 2018. Admission Reason for Admission: Left Leg Cellulitis Discharge Discharge Diagnosis / Problem: Left leg cellulitis, left lower abdomen wound Discharge Goals Goal(s): Improve disease control Activity Recommendations Activity Limitations: resume your previous activity . Instructions / Follow-Up Instructions / Follow-Up You were admitted for further evaluation of your left leg cellulitis. While here, your left lower abdomen wound was also evaluated. - You are being discharged on an antibiotic called doxycycline. Please take this for eight more days to complete the antibiotic course from the hospital. You are also strongly recommended not to scratch or press on your leg if possible, as that will likely only make the discoloration worse and risk a new infection through a new break in the skin. You can take Benadryl over-the- counter for this as needed for the itching. - Regarding your abdominal wound, it is best that you either return to the doctor who did the initial excision or perhaps see a general surgeon for ongoing management of the area. - While in the hospital, it was noted that your blood pressures were elevated. Your medication for your blood pressure was not changed here, though it likely needs further adjustment from your primary care provider. - Your kidney function was also noted to be not quite normal, though this may be your current baseline. It is important that you discuss this with your primary care provider to track your kidney function over time in hopes to work towards not having any future further worsening. - Please return to the emergency department for any new or uncontrolled pain in your leg, if it seems that the redness is quickly spreading outside the current area, for any bleeding or drainage from the leg, for any new concerns about an infection of your abdominal wound, or with any other emergent concerns. Current Hospital Diet Patient's current hospital diet: Diabetes Type 2 Diet Discharge Diet Recommended Diet: Diabetes Type 2 Diet Pending Studies Studies pending at discharge: no Laboratory Results Hemoglobin A1c Test 01/09/18 18:05 Range/Units Estimated Average Glucose 169 mg/dl Hemoglobin A1c 7.5 H 4.5-5.6 % Medical Emergencies . Who to Call and When: Medical Emergencies: If at any time you feel your situation is an emergency, please call 911 immediately. . Non-Emergent Contact Non-Emergency issues call your: Primary Care Provider .
--- NOTE | 2018-01-11 14:17 | Discharge Summary ---
Discharge Summary Date of Service Jan 11, 2018. Discharge Summary Admission Date: Jan 09, 2018 at 20:12 Discharge Date: Jan 11, 2018 Discharge Disposition: Home Principal Diagnosis: Left leg cellulitis Problems/Secondary Diagnoses: - Left lower abdominal wound Immunizations: Have You Had Influenza Vaccine: Yes History of Tetanus Vaccine?: Yes Tetanus Immunization Date: Aug 16, 2008 History of Pneumococcal: Yes History of Hepatitis B Vaccine: No Procedures: 09Jan2018 - LEFT TIBIA/FIBULA 2 VIEWS ROUTINE IMPRESSION: 1. No acute bony abnormality. 2. Generalized soft tissue edematous change 09Jan2018 - LEFT VENOUS DOPP LOWER EXT UNILAT IMPRESSION: 1. No evidence for deep venous thrombosis. 2. Soft tissue edema. 10Jan2018 - ABDOMEN LIMITED (US) IMPRESSION: 4 x 4 x 1 cm subcutaneous phlegmon type process overlying the left lower abdominal region. No evidence for a drainable fluid or abscess pocket collection. 10Jan2018 - LEFT EXTREMITY NONVASCULAR LIMITED CLINICAL HISTORY: LT GARRIDO/CALF ABSCESS pain. Edema. IMPRESSION: Generalized soft tissue edema. No evidence for abscess or collection. Consultations: Discussed case with wound management Medication Reconciliation New Medications: Doxycycline Monohydrate (Monodox) 100 Mg Cap 100 MG PO BID for 8 Days, #16 CAP Continued Medications: Amlodipine (Norvasc) 5 Mg Tab 5 MG PO QAM, TAB Ascorbic Acid (Vitamin C) 1,000 Mg Tab 1000 MG PO NOON Aspirin (Aspirin Ec) 81 Mg Tab 81 MG PO HS Atorvastatin (Lipitor) 40 Mg Tab 40 MG PO HS, TAB Calcium Carbonate-Vitamin D (Calcium) 1 Tab Tab 1 TAB PO QAM Cholecalciferol (Vitamin D) 2,000 Unit Cap 2000 INTUNIT PO DAILY Coenzyme Q10 (Ubidecarenone) (Co Q-10) 200 Mg Cap 200 MG PO NOON Cyanocobalamin (Vitamin B-12 1000 Mcg) 1,000 Mcg Tab 1000 MCG PO Q2D, TAB Fish Oil ([place]-3) 1 Ea Cap 1 CAP PO DAILY Gabapentin (Neurontin) 300 Mg Cap 600 MG PO TID, CAP Insulin Aspart (Novolog) 100 Units/Ml Inj 50-100 UNITS SQ AC PER SLIDING SCALE Insulin Glargine (Lantus) 100 Unit/Ml Inj 60 UNITS SQ AMPM, VIAL Losartan Potassium (Cozaar) 100 Mg Tab 100 MG PO QAM, TAB Nitroglycerin (Nitrostat) 0.4 Mg Sub 0.4 MG UT PRN, BTL Pantoprazole (Protonix) 40 Mg Tab 40 MG PO DAILY, #30 TAB Potassium Chloride (Micro-K Ext Rel) 10 Meq Capcr 10 MEQ PO Q2D, CAP Tocopheryl Acet,Dl-Alpha (Vitamin E/Dl-Alpha) 400 Unit Cap 400 UNITS PO DAILY Trazodone Hcl (Trazodone) 50 Mg Tab 25 MG PO HS, TAB Triamterene/Hctz (Maxzide 75MG/50MG) Tab 0.5 TAB PO DAILY, TAB Discharge Exam General Appearance: Awake, alert & oriented, comfortable in general, NAD. CV: +S1S2 RRR, no murmur. No peripheral edema. Pulm: Clear to auscultation throughout. Abdomen: +BS, soft, non-tender, non-distended. Bandaged lower abdominal wound with underlying two (few-mm in diameter) draining areas of a total 4-5 cm diameter area. This area is not fluctuant, erythematous, edematous, or tender to palpation. Extremities: The left calf has generalized erythema near-circumferentially from the low tib/fib up to a couple cm below the patella, perhaps a bit improved from admission. This area is still within previously demarcated skin pen lines (of unknown placement time). The area is not notably warm and not particularly tender to palpation. There is a local surrounding (perhaps a couple cm) petechial / broken capillary-type rash outside of this erythema. The bilateral distal feet have 1+ edema as well. Distal cap refill < 2 seconds. Patient says he has baseline DM neuropathy with decreased sensation throughout his BLE, but says present sensation seems at his baseline. Able to move ankles and knees without difficulty. Neuro: No gross neuro deficits with exception of neuropathy as noted. Review of Systems: Constitutional: No fever, No chills Respiratory: No cough, No shortness of breath Cardiovascular: + edema, No chest pain Abdomen: No pain, No nausea, No vomiting Integumentary: + rash, + itch, + color change, No bleeding Hospital Course HPI at time of admit on Jan 09, 2018 at 20:17 Mr. Valles is a 72yo C male with multiple medical problems to include DM on insulin therapy with neuropathy, CAD s/p stent in 2012, HTN, ITP with baseline platelets 20-30 and GERD. Patient states that he fell on 2017 an injured his left lower leg. He states that he has had increased swelling since the date of injury. He has been seen by his PCP and completed 3 courses of outpatient antibiotics. He states that it has been worsening over the last week. His skin was marked last Monday at his outpatient clinic and his redness and swelling has progressed beyond the neto. He denies fevers, chills, malaise, nausea, vomiting. Denies pain or crepitus in the leg. No additional complaints. Discharge summary on 11Jan2018 72 yo male admitted on 09Jan2018 for left lower extremity cellulitis after failed outpatient antibiotic therapy. LLE cellulitis: Noted initially s/p fall on with ongoing erythema and swelling to the area. Has been on a cephalosporin (not sure which one), then cefdinir, then Bactrim DS. Possibly also trial of Clobetasol 0.05%. On admit, started on both vancomycin and zosyn. 27Mar BCx x 2 no growth to date. On serial exams, he is very comfortable, afebrile, WBC 9-10, and not really tender at all on leg palpation. 28Mar left soft tissue u/s was suggestive of edema without abscess. Tape measurements of his calf were less than his prior recorded measurements. An ongoing/worsening cellulitis is unclear at this point. Much of the current discoloration of his leg is likely residual from the prior cellultis in combination with a diabetic leg. He may have had a superifical re-infection of the area (due to his persistent scratching of the area) which has improved/resoved with current antibiotics. - On day of discharge, converted antibiotic coverage to doxycycline BID with planned total 10 days abx coverage. - Provided benadryl prn as inpatient to help with the itching. - Recommended he stop scratching at the area, as well as to have close follow- up with his PCM. Left lower abdomen wound: Patient states that he had a cyst removed in November and has experienced persistent drainage from the site. Two noted areas of drainage. 28Mar local soft tissue u/s noted 4 x 4 x 1 cm subcutaneous phlegmon without evidence of abscess. Discussed case with wound management, they recommended he have an outpatient evaluation for possible full cyst excision in the near future. - The area does not appear presently infected, but the doxy as above should cover common skin bacteria. DM2 and diabetic neuropathy: History of same. HbA1c here 7.5. On lantus and ISS. On neurontin for peripheral neuropathy. No acute inpatient changes. Bilateral lower extremity edema: History of same. Patient is aware of this and apparently is tracking it. Recommended PCM follow up for the same. HTN: As inpatient, kept on home Amlodipine, Cozaar, Triamterene/HCTZ. However , BP noted to be upwards of SBP 160's to 190s and DBP 80's to 90's. Recommended PCM follow up for the same. Elevated Creatinine: This am noted Cr 1.38 (and drug Cr Clr 62.9). Only prior comparison in record is 1.43 back on 15Dec2017. Patient stated he was aware that his kidneys were not working 'perfectly' but said he was not closely tracking it. Had discussion on possible diabetic renal disease. Recommended PCM follow up for the same. CAD: Stable. No acute inpatient changes. ITP: Platelets ranged between 19-23 as inpatient. No evidence of active bleeding. GERD: Stable. No acute inpatient changes. Total Time Spent: Greater than 30 minutes This includes examination of the patient, discharge planning, medication reconciliation, and communication with other providers. Discharge Instructions Please refer to the electronic Patient Visit Report (Discharge Instructions) for additional information. Additional Copies To Lynn Maddox M.D.; Moe Eduardo MD Resident Tracking Resident Involvement: Resident Care Provided Care Provided: Adult [facility] Medicine (inpatient) Assessment/Plan Resident Physician Supervision Note: I was present with Dr. Dimas during the history and exam. I discussed the case with the resident and agree with the findings and plan as documented in the note. Any exceptions or clarifications are listed here. Pt reports that LLE wound remains pruritic but nonpainful, but will avoid scratching and moisturize/skin care. Would benefit from outpatient wound care, discussed with inpatient wound care team. Agree w/ course of abx for LLE to complete, but very likely resolved except skin changes and pruritis from inflammation and edema. Other chronic conditions as above.
[2018-01-11 14:28] VITALS: BP 191/95; PULSE 65; TEMP 36.4; O2SAT 96
[2018-01-12] MEDS ORDERED: VANCOMYCIN TROUGH ONE (03:30)
== END 2018-01-11 12:35 | disposition home or self-care (01) | DRG 638 ==
LOC: C.EDB 17:36 → C.MS2W 20:12 → ENRESERV 21:10
PROVIDERS: ADMIT Internal Medicine; ATTEND Family Medicine
DX: E11.69 Type 2 diabetes mellitus with other specified complication (principal); L03.116 Cellulitis of left lower limb; D69.3 Immune thrombocytopenic purpura; S31.109A Unspecified open wound of abdominal wall, unspecified quadrant without penetration into peritoneal cavity, initial encounter; J44.9 Chronic obstructive pulmonary disease, unspecified; I25.10 Atherosclerotic heart disease of native coronary artery without angina pectoris; E11.40 Type 2 diabetes mellitus with diabetic neuropathy, unspecified; I10 Essential (primary) hypertension; Z87.891 Personal history of nicotine dependence; Z88.8 Allergy status to other drugs, medicaments and biological substances; Z79.4 Long term (current) use of insulin; Z95.5 Presence of coronary angioplasty implant and graft; Z82.49 Family history of ischemic heart disease and other diseases of the circulatory system; K21.9 Gastro-esophageal reflux disease without esophagitis; S89.92XD Unspecified injury of left lower leg, subsequent encounter; W19.XXXD Unspecified fall, subsequent encounter; Y83.8 Other surgical procedures as the cause of abnormal reaction of the patient, or of later complication, without mention of misadventure at the time of the procedure

== ENCOUNTER → 2018-01-17 | Outpatient (CLI) | payer OTHER, MEDICARE ==
[~2018-01-17] MED LIST changes: +DOXY100C76 PO; -FLAX12003 PO; +NVLG SQ; -NVLGI SC; +PANT40TA PO; -PRT/20 PO; +TRIA75TA53 PO; -TRIATAB3 PO; -VITA400C15 PO; +VTME400 PO
[2018-01-17 13:44] LABS: HEMATOCRIT 42.2 % (42-52); HEMOGLOBIN 14.2 g/dL (14.0-18.0); MEAN CELL VOLUME 86.7 fL (80-100); MEAN CORPUSCULAR HEMOGLOBIN 29.2 pg (25-34); MEAN CORPUSCULAR HGB CONC 33.6 g/dl (32-36); PLATELET COUNT 31 K/uL (130-400); RED CELL DISTRIBUTION WIDTH CV 13.7 % (11.5-14.5); RED CELL DISTRIBUTION WIDTH SD 43.4 fL (36.4-46.3); WHITE BLOOD COUNT 10.54 K/uL (4.8-10.8)
== END | disposition home or self-care (01) ==
LOC: C.LABPVFM 10:57
PROVIDERS: ATTEND Family Medicine
DX: D69.3 Immune thrombocytopenic purpura (principal)

== ENCOUNTER → 2018-01-31 | Outpatient (CLI) | payer OTHER, MEDICARE ==
[~2018-01-31] MED LIST changes: -DOXY100C76 PO; +OPTIRAY 320 IV PRN
--- NOTE | 2018-01-31 13:11 | DIAGNOSTIC IMAGING REPORT ---
ABD/PELVIS COMBO CT DOSE: 2412.30 mGycm HISTORY: Hematuria R31.29 Hematuria, [id number] [id number] Benign prostatic TECHNIQUE: Multiaxial CT images of the abdomen and pelvis were performed pre and post intravenous contrast enhancement. A dose lowering technique was utilized adhering to the principles of ALARA. COMPARISON STUDY: None. FINDINGS: Lung bases are clear. Evaluation of the abdomen is compromised due to patient body habitus. Liver is uniform. Gallbladder is negative for distention. Kidneys demonstrate several simple and/or hyperdense cysts. There is no evidence for abnormal postcontrast enhancement. There is no evidence for hydronephrosis. There are several nonobstructing right renal cortical and or pericystic calcifications. There is moderate atherosclerotic change of the abdominal aorta as well as pelvic arterial vasculature. There are findings of mild chronic colonic diverticulosis. There is no evidence for acute diverticulitis. No evidence for abscess or collection. The bladder is midline. There are no contained calcifications. There is no significant abdominal pelvic or inguinal adenopathy. The bowel pattern is nonobstructive. IMPRESSION: 1. Several bilateral renal simple cysts and hyperdense cysts. 2. No evidence for an abnormal renal mass or enhancing lesion. 3. Mild chronic colonic diverticulosis with no evidence for acute diverticulitis. 4. No evidence for prostatic enlargement. 5. Multifocal areas of subcutaneous cellulitis of the low anterior abdominal wall and left inguinal region. 6. No evidence for abscess or collection. Several small reactive inguinal nodes bilaterally. The above report was generated using voice recognition software. It may contain grammatical, syntax or spelling errors. Electronically signed by: Segundo Clement M.D. 01/31/2018 1:09 PM Dictated Date/Time: 01/31/2018 1:00 PM
== END | disposition home or self-care (01) ==
LOC: C.CTS 12:22
PROVIDERS: ATTEND Urology
DX: N28.89 Other specified disorders of kidney and ureter (principal); L03.311 Cellulitis of abdominal wall; R59.0 Localized enlarged lymph nodes; R31.29 Other microscopic hematuria; N40.1 Benign prostatic hyperplasia with lower urinary tract symptoms; R30.0 Dysuria

== ENCOUNTER 2022-07-25 10:09 | Observation (INO) ==
--- NOTE | 2022-07-25 10:46 | History & Physical Report ---
Date of Service July 25, 2022 Assessment & Plan (1) Bradycardia: Plan: Patient found to be in a Mobitz 2 heart block. Patient takes a beta-dipak which will be held. Lyme disease will be checked. Echocardiogram was ordered and cardiology consult with [facility] cardiology typically seen Dr. Aguirre. 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 He will continue on losartan Lasix and his isosorbide which helps for his coronary disease will also be effective in blood pressure control (4) ITP (idiopathic thrombocytopenic purpura): Plan: Patient previously has been on IgG with reaction and rituxan with reaction, romiplostim for platelet support Patient's platelet count was 58 on presentation. He typically gets his romiplostim on . In the past he has been on periprocedural Decadron which was not started prior to his endoscopy (5) GERD without esophagitis: Plan: Patient scheduled for an endoscopy due to bloating. This is on hold. We will continue her proton pump inhibitor (6) Benign prostatic hyperplasia with urinary obstruction: Plan: Patient typically is on Flomax and Proscar. We will hold Flomax at this time continue Proscar (7) Obesity (BMI 35.0-39.9 without comorbidity): Plan: Patient has a sleep apnea and is noncompliant with home CPAP machine last visit with Dr. Wilson felt that his morbid obesity may make fitment of his CPAP mask a challenge (8) DVT prophylaxis: Plan: Heparin abuse for DVT prevention as can be stopped more timely if intervention is required History of Present Illness Primary Care Provider: CARMEN Wheeler 76 male who typically follows with the [facility], Dianne Healy and Dr. Aguirre who was at preanesthesia testing for endoscopy but is found to have an abnormal heart rhythm and bradycardia. Patient was sent to the emergency department. Patient is a significant past medical history of coronary disease taking isosorbide. Diastolic heart failure sleep apnea ITP BPH with symptoms and diabetes. Patient was found be Mobitz 2 heart block with rate of 33 his blood pressure is robust is not in overt heart failure at this time Allergies Allergy/AdvReac Type Severity Reaction Status Date / Time immune globulin,gamma (IgG) Allergy Unknown GAMUNEX- Verified 07/25/22 08:21 human SHAKING, CHILLS, FEVER lisinopril AdvReac Mild COUGH Verified 07/25/22 08:21 Home Medications Medication Instructions Recorded Confirmed Type aspirin 81 mg tablet,delayed 81 mg PO HS 03/05/19 07/25/22 History release cyanocobalamin (vitamin B-12) 1,000 mcg PO Q2D 03/05/19 07/25/22 History 1,000 mcg tablet,extended release nitroglycerin 0.4 mg sublingual 0.4 mg sublingual UD PRN Chest 03/05/19 07/25/22 History tablet Pain #25 tabs carvedilol 3.125 mg tablet 3.125 mg PO BID #180 tabs 04/05/19 07/25/22 Rx gabapentin 300 mg capsule 600 mg PO BID #360 caps 04/05/19 07/25/22 Rx losartan 100 mg tablet 100 mg PO QAM #90 tabs 04/05/19 07/25/22 Rx tamsulosin 0.4 mg capsule 0.4 mg PO HS #90 caps 04/05/19 07/25/22 Rx vitamin E (dl, acetate) 180 mg 400 units PO QDL 05/10/19 07/25/22 History (400 unit) capsule CPAP Machine #1 ea 12/05/19 06/30/22 Rx insulin aspart U-100 100 unit/mL 100 unit subcut TIDM 05/19/22 07/25/22 History subcutaneous solution (Novolog U-100 Insulin aspart) insulin glargine 100 unit/mL 55 unit subcut BID 05/19/22 07/25/22 History subcutaneous solution (Lantus U-100 Insulin) rosuvastatin 20 mg tablet 20 mg PO QPM 05/19/22 07/25/22 History zinc 50 mg tablet 50 mg PO QDL 05/19/22 07/25/22 History FreeStyle Honorio 2 [place] (flash #1 ea 06/21/22 06/30/22 Rx glucose scanning reader) FreeStyle Honorio 2 Sensor (flash #7 ea 06/21/22 06/30/22 Rx glucose sensor) cholecalciferol (vitamin D3) 25 50 mcg PO QDL 06/30/22 07/25/22 History mcg (1,000 unit) capsule eplerenone 25 mg tablet 25 mg PO BID 06/30/22 07/25/22 History finasteride 5 mg tablet 5 mg PO BID #90 tabs 06/30/22 07/25/22 Rx furosemide 40 mg tablet 40 mg PO BID 06/30/22 07/25/22 History isosorbide mononitrate 30 mg 30 mg PO QAM 06/30/22 07/25/22 History tablet,extended release 24 hr omega [id number]-evb-jgb-fish oil 1,000 mg 1 cap PO QAM 06/30/22 07/25/22 History (120 mg-180 mg) capsule (Fish Oil) romiplostim 500 mcg subcutaneous 680 mcg subcut WK 06/30/22 07/25/22 History solution trazodone 50 mg tablet 50 mg PO HS sleep/depression #90 06/30/22 07/25/22 Rx tabs esomeprazole magnesium 20 mg 20 mg PO QAM 07/15/22 07/25/22 History capsule,delayed release (Nexium) Past Med/Surg History Medical History Abdominal bloating REASON FOR UPCOMING PROCEDURE Arthritis BPH (benign prostatic hyperplasia) Cancer s/p nasal lesion excision Coronary artery disease stent x1 (2013) Diabetes mellitus, type 2 IDDM Dyslipidemia GERD (gastroesophageal reflux disease) controlled Hiatal hernia History of difficult venous access Hypertension ITP (idiopathic thrombocytopenic purpura) follows with hematology (Dr. Isaac/[facility]) Sleep apnea CPAP SOB (shortness of breath) on exertion WORSENING OVER LAST 6 MON, PCP AWARE Tear of lateral meniscus of right knee Tear of medial meniscus of right knee Surgical History Difficult intubation 07/14/16 - Glidescope #4, ETT #7.5, Grade 1 View H/O vasectomy History of appendectomy History of cardiac cath stent x1 (2013) History of colonoscopy History of esophagogastroduodenoscopy (EGD) History of laparotomy X 3-ABDOMINAL CYST History of repair of rotator cuff RIGHT - 07/14/16 - Glidescope #4, ETT #7.5, Grade 1 View History of tooth extraction Pilonidal cyst REMOVED S/P right knee arthroscopy Surgery, elective LEFT AXILLARY BENIGN MASS Family History Mother Family hx of colon cancer Family history of diabetes mellitus Hypertension Grandmother (Maternal) Diabetes Family history of diabetes mellitus Aunt Family history of diabetes mellitus Father Stroke Grandfather Myocardial infarction Other No family history of adverse response to anesthesia Denies family history of Ovarian cancer Prostate cancer Breast cancer Colorectal cancer Social History Smoking Status: Former smoker Tobacco Type: Cigarettes Age Started Using Tobacco: 19; Age Quit Using Tobacco: 39; Second Hand Exposure: No; Hx Alcohol Use: Yes Alcohol type: hard liquor Alcohol Intake Frequency: Monthly or Less Hx Substance Use: No Preferred Language: Mongolian Communication Ability: Effective 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 Beliefs That Will Affect Care: None marital status: Single Current Living Situation: Alone current occupational status: retired How many Children do You have: 1 Feels Safe at Home: Yes Childhood Exposure to Second-Hand Smoke: No caffeine: Yes Dental Care, Regularly: Yes Physical Activity Frequency: Does not Exercise Seatbelt Use: sometimes Sunscreen Use: No Assistive Devices: CPAP and Hearing Aid - Bilateral Review of Systems Review of Systems: Mild distress and fatigue no headache, no visual changes no speech or swallowing issues no chest pain, pressure or palpitations no shortness of breath, cough or wheezes no abdominal pain, nausea or vomiting, diarrhea or constipation no dysuria, hematuria or frequency no focal joint pain or swelling no back pain, CVA tenderness or radicular pain no bruising, bleeding or rashes no focal signs of weakness or numbness or altered sensation no complaints of anxiety or depression.. Physical Exam Physical Exam: The patient appeared well nourished and normally developed. Vital signs as documented. Head exam is normocephalic atraumatic Neck is without JVD, thyromegaly, or carotid bruits. Lungs are clear to auscultation, no focal loss of breath sounds Cardiac exam, Rhythm is regular.. No murmurs, rubs or gallops. Abdominal exam reveals normal bowel sounds, soft non tender, no masses Extremities are nonedematous and both pedal pulses are present Neurologic exam is alert and oriented, no focal loss of strength or sensation Skin is without bruises or rashes Psychologically is without concerns for anxiety or depression.. Results & Data Results & Data ([facility]) Vital Signs (Past 12 Hours) Vital Signs Pulse Resp BP Pulse Ox O2 Del Method 07/25/22 10:40 97 Room Air 07/25/22 10:37 Room Air 07/25/22 10:09 33 L 18 179/80 H 95 PG Care Time/CCT Total # of Minutes Spent Total Time Spent with Patient: Total time spent is greater than 50% in coordination of care (as documented) at patient's floor/unit and/or counseling patient: Coding Level of Care Code 69648 Initial Inpt Care Lvl 3 Diagnoses Bradycardia R00.1 Diabetes E11.9 Hypertension I10 ITP (idiopathic thrombocytopenic purpura) D69.3 GERD without esophagitis K21.9 Benign prostatic hyperplasia with urinary obstruction N40.1; N13.8 Obesity (BMI 35.0-39.9 without comorbidity) E66.9 DVT prophylaxis Z29.9
--- NOTE | 2022-07-25 10:46 | Emergency Department Note ---
Impression & Plan AV block, Mobitz II, Weak, High serum chloride ED Provider Note NAME: ALPHONSO WERNER AGE: 76 SEX: M : 1945 ARRIVES VIA: Walk-In INFORMANT: Patient ED PROVIDER(S): Lauro Rosa DO CHIEF COMPLAINT: abnormal ekg HPI: Patient is a 76-year-old male with a past medical history of diabetes, hypertension, COPD, GERD and obesity that presents to the ER as he was scheduled to have a EGD performed today. He was found to be bradycardic in the 30s and sent to the ER. He denies any headache or change in vision. No chest pain or shortness of breath with the exception of the shortness of breath that has been present since he received his COVID-vaccine. No belly pain, nausea, vomiting, or diarrhea. No dysuria, urgency, or frequency. No other exacerbating or remitting factors. ROS: See above HPI for pertinent positives & negatives. A total of 10 systems reviewed and were otherwise negative. PAST MEDICAL HISTORY:See Below PAST SURGICAL HISTORY:See Below FAMILY HISTORY:See Below SOCIAL HISTORY:See Below HOME MEDICATIONS:See Below ALLERGIES:See Below VITALS:See Below PHYSICAL EXAMINATION: GENERAL: Sitting up in bed, alert, well appearing, well nourished, no distress, non-toxic EYE EXAM: normal conjunctiva. OROPHARYNX: no exudate, no erythema, lips, buccal mucosa, and tongue normal and mucous membranes are moist NECK: supple, no nuchal rigidity, no adenopathy, non-tender LUNGS: Clear to auscultation. Normal chest wall mechanics HEART: no murmurs, S1 normal and S2 normal ABDOMEN: abdomen soft, non-tender, normo-active bowel sounds, no masses, no rebound or guarding. UPPER EXTREMITIES: upper extremities are grossly normal. LOWER EXTREMITIES: No pitting edema. NEURO EXAM: Normal sensorium, cranial nerves II-XII grossly intact, normal s peech, no gross weakness of arms, no gross weakness of legs. MEDICAL DECISION MAKING: Patient is a 76-year-old male who presents ER for the boasting complaint. IV was established blood was obtained. Labs show no significant leukocytosis or anemia. BMP with slightly elevated chloride. Creatinine 1.5 consistent with previous. LFTs bilirubin were unremarkable. Troponin was slightly elevated. TSH and lipase were normal. Lyme were negative. COVID-negative. EKG confirms a Mobitz 2. Patient's blood pressures were appropriate in the 170s. Discussed with cardiology they presented at bedside and agreed. Discussed with the hospitalist Dr. Donovan Lugo who admitted the patient. Patient remained on the pacer pads throughout his stay in the ER. Triage Nursing notes reviewed. Limited review of prior medical records performed Vital Signs: reviewed and remarkable for HTN Differential diagnosis: Infection, dehydration, metabolic abnormality, hypo/hyperglycemia, electrolyte disturbance, anemia, hypoxia, cardiac sources, intracerebral event, toxicologic, neurologic, as well as other pathologies. ER treatment provided: See below Diagnostics interpreted by me: ECG: Mobitz 2 rate of 32 Normal axis No PVCs QTC 370 Cardiac Monitoring: An order was placed for continuous cardiac monitoring. The monitor shows a rate of 33 with sinus rhythm. Laboratory studies: As stated above and show below. Imaging studies: Portable AP upright 1 view the chest shows no focal infiltrate Consultation(s): As described above discussed with cardiology as well as not any hospitalist Critical Care: I have personally spent 32 minutes of critical care time in the direct management of this patient. This includes bedside care, interpretation of diagnostic studies, and testing, discussion with consultants, patient, and family members, and other required patient management activities. This 32 minutes is in excess of all separately billable procedures. Past Med/Surg History Medical History Abdominal bloating REASON FOR UPCOMING PROCEDURE Arthritis BPH (benign prostatic hyperplasia) Cancer s/p nasal lesion excision Coronary artery disease stent x1 (2013) Diabetes mellitus, type 2 IDDM Dyslipidemia GERD (gastroesophageal reflux disease) controlled Hiatal hernia History of difficult venous access Hypertension ITP (idiopathic thrombocytopenic purpura) follows with hematology (Dr. Isaac/[facility]) Sleep apnea CPAP SOB (shortness of breath) on exertion WORSENING OVER LAST 6 MON, PCP AWARE Tear of lateral meniscus of right knee Tear of medial meniscus of right knee Surgical History Difficult intubation 07/14/16 - Glidescope #4, ETT #7.5, Grade 1 View H/O vasectomy History of appendectomy History of cardiac cath stent x1 (2013) History of colonoscopy History of esophagogastroduodenoscopy (EGD) History of laparotomy X 3-ABDOMINAL CYST History of repair of rotator cuff RIGHT - 07/14/16 - Glidescope #4, ETT #7.5, Grade 1 View History of tooth extraction Pilonidal cyst REMOVED S/P right knee arthroscopy Surgery, elective LEFT AXILLARY BENIGN MASS Family History Mother Family hx of colon cancer Family history of diabetes mellitus Hypertension Grandmother (Maternal) Diabetes Family history of diabetes mellitus Aunt Family history of diabetes mellitus Father Stroke Grandfather Myocardial infarction Other No family history of adverse response to anesthesia Denies family history of Ovarian cancer Prostate cancer Breast cancer Colorectal cancer Social History Smoking Status: Former smoker Tobacco Type: Cigarettes Age Started Using Tobacco: 19; Age Quit Using Tobacco: 39; Second Hand Exposure: No; Hx Alcohol Use: Yes Alcohol type: hard liquor Alcohol Intake Frequency: Monthly or Less Hx Substance Use: No Preferred Language: French Communication Ability: Effective [employer] Required: No Beliefs That Will Affect Care: None marital status: Single Current Living Situation: Alone current occupational status: retired How many Children do You have: 1 Feels Safe at Home: Yes Childhood Exposure to Second-Hand Smoke: No caffeine: Yes Dental Care, Regularly: Yes Physical Activity Frequency: Does not Exercise Seatbelt Use: sometimes Sunscreen Use: No Assistive Devices: CPAP and Hearing Aid - Bilateral Allergies Allergies Allergy/AdvReac Type Severity Reaction Status Date / Time immune globulin,gamma (IgG) Allergy Unknown GAMUNEX- Verified 07/25/22 08:21 human SHAKING, CHILLS, FEVER lisinopril AdvReac Mild COUGH Verified 07/25/22 08:21 Home Meds Home Medications Medication Instructions Recorded Confirmed aspirin 81 mg tablet,delayed 81 mg PO HS 03/05/19 07/25/22 release cyanocobalamin (vitamin B-12) 1,000 mcg PO Q2D 03/05/19 07/25/22 1,000 mcg tablet,extended release nitroglycerin 0.4 mg sublingual 0.4 mg sublingual UD PRN Chest 03/05/19 07/25/22 tablet Pain #25 tabs vitamin E (dl, acetate) 180 mg 400 units PO QDL 05/10/19 07/25/22 (400 unit) capsule insulin aspart U-100 100 unit/mL 100 unit subcut TIDM 05/19/22 07/25/22 subcutaneous solution (Novolog U-100 Insulin aspart) insulin glargine 100 unit/mL 55 unit subcut BID 05/19/22 07/25/22 subcutaneous solution (Lantus U-100 Insulin) rosuvastatin 20 mg tablet 20 mg PO QPM 05/19/22 07/25/22 zinc 50 mg tablet 50 mg PO QDL 05/19/22 07/25/22 cholecalciferol (vitamin D3) 25 50 mcg PO QDL 06/30/22 07/25/22 mcg (1,000 unit) capsule eplerenone 25 mg tablet 25 mg PO BID 06/30/22 07/25/22 furosemide 40 mg tablet 40 mg PO BID 06/30/22 07/25/22 isosorbide mononitrate 30 mg 30 mg PO QAM 06/30/22 07/25/22 tablet,extended release 24 hr omega 0-fhe-mrp-fish oil 1,000 mg 1 cap PO QAM 06/30/22 07/25/22 (120 mg-180 mg) capsule (Fish Oil) romiplostim 500 mcg subcutaneous 680 mcg subcut WK 06/30/22 07/25/22 solution esomeprazole magnesium 20 mg 20 mg PO QAM 07/15/22 07/25/22 capsule,delayed release (Nexium) Previous Rx's Medication Instructions Recorded carvedilol 3.125 mg tablet 3.125 mg PO BID #180 tabs 04/05/19 gabapentin 300 mg capsule 600 mg PO BID #360 caps 04/05/19 losartan 100 mg tablet 100 mg PO QAM #90 tabs 04/05/19 tamsulosin 0.4 mg capsule 0.4 mg PO HS #90 caps 04/05/19 CPAP Machine #1 ea 12/05/19 FreeStyle Honorio 2 [place] (flash #1 ea 06/21/22 glucose scanning reader) FreeStyle Honorio 2 Sensor (flash #7 ea 06/21/22 glucose sensor) finasteride 5 mg tablet 5 mg PO BID #90 tabs 06/30/22 trazodone 50 mg tablet 50 mg PO HS sleep/depression #90 06/30/22 tabs Results & Data (ED) Vital Signs Vital Signs - 24 hr 07/25/22 10:09 07/25/22 10:37 07/25/22 10:40 Pulse Rate 33 L Pulse Rhythm Respiratory Rate 18 Respiratory Effort / Characteristics Non-Labored Short of Breath Respiratory Depth Normal Normal Respiratory Pattern Regular Blood Pressure 179/80 H Blood Pressure Mean 113 Blood Pressure Position Sitting Pulse Oximetry 95 97 Oxygen Delivery Method Room Air Room Air Sepsis Recent Fever Within 48 Hours No Sepsis New/Unexplained Change in Mental Status No Sepsis Action Taken by Nursing No Action Required 07/25/22 10:43 07/25/22 10:35 07/25/22 10:40 Pulse Rate 36 L 41 L 32 L Pulse Rhythm Irregular Respiratory Rate 21 17 19 Respiratory Effort / Characteristics Respiratory Depth Respiratory Pattern Blood Pressure 181/88 H Blood Pressure Mean 119 Blood Pressure Position Pulse Oximetry 97 94 95 Oxygen Delivery Method Room Air Room Air Room Air Sepsis Recent Fever Within 48 Hours Sepsis New/Unexplained Change in Mental Status Sepsis Action Taken by Nursing 07/25/22 10:50 07/25/22 11:00 Pulse Rate 31 L 33 L Pulse Rhythm Respiratory Rate 19 12 Respiratory Effort / Characteristics Respiratory Depth Respiratory Pattern Blood Pressure Blood Pressure Mean Blood Pressure Position Pulse Oximetry 97 96 Oxygen Delivery Method Room Air Room Air Sepsis Recent Fever Within 48 Hours Sepsis New/Unexplained Change in Mental Status Sepsis Action Taken by Nursing Laboratory Data Result diagrams: 07/25/22 10:29 07/25/22 10:29 Lab Results 07/25/22 07/25/22 07/25/22 Range/Units 10:29 10:29 10:29 WBC 10.04 (4.8-10.8) K/ul RBC 4.69 (4.63-6.08) M/uL Hgb 14.0 (14.0-18.0) g/dl Hct 41.9 (40.1-51.0) % MCV 89.3 (80.0-100.0) fL MCH 29.9 (25.0-34.0) pg MCHC 33.4 (32.0-36.0) g/dL RDW Std Deviation 44.4 (36.4-46.3) fL RDW Coeff of Ebony 13.7 (11.5-14.5) % Plt Count 58 L (130-400) K/uL MPV 11.9 (9.4-12.4) fL Immature Gran % (Auto) 0.8 % Neut % (Auto) 68.6 % Lymph % (Auto) 21.6 % [place] % (Auto) 5.2 % Eos % (Auto) 3.3 % Baso % (Auto) 0.5 % Neut # (Auto) 6.89 H (1.4-6.5) K/uL Lymph # (Auto) 2.17 (1.2-3.4) K/uL [place] # (Auto) 0.52 (0.24-0.82) K/uL Eos # (Auto) 0.33 (0-0.50) K/uL Baso # (Auto) 0.05 (0-0.2) K/uL Immature Gran # (Auto) 0.08 H (0.00-0.02) K/uL Platelet Estimate Decreased L (Normal) Tear Drop Cells 2+ Sodium 142 (136-145) mmol/L Potassium 3.9 (3.5-5.1) mmol/L Chloride 109 H (98-107) mmol/L Carbon Dioxide 28 (21-32) mmol/L Anion Gap 5 (3-11) BUN 23 (6-23) mg/dl Creatinine 1.52 H (0.6-1.4) mg/dl Est Cr Clr Drug Dosing Not Reportable Est GFR ( Amer) 51.6 ml/min Est GFR (Non-Af Amer) 44.5 ml/min BUN/Creatinine Ratio 15.1 (10-20) Glucose 146 H (70-99(Fasting)) mg/dl Calcium 8.9 (8.5-10.1) mg/dl Total Bilirubin 0.8 (0.2-1.0) mg/dl AST 19 (13-39) U/L ALT 18 (7-52) U/L Alkaline Phosphatase 65 (34-104) U/L Troponin I High Sens 24.3 H (0-20) pg/ml Total Protein 6.8 (6.0-8.3) gm/dl Albumin 3.6 (3.4-5.0) gm/dl Globulin 3.2 (2.5-4.0) gm/dl Albumin/Globulin Ratio 1.1 (0.9-2) Lipase 45 (11-82) U/L TSH 2.137 (0.300-4.500) uIu/ml Lyme Disease IgG Ab (Negative) Lyme Disease IgM Ab (Negative) SARS-CoV-2, RNA, NAAT (NEGATIVE) 07/25/22 07/25/22 Range/Units 10:29 10:37 WBC (4.8-10.8) K/ul RBC (4.63-6.08) M/uL Hgb (14.0-18.0) g/dl Hct (40.1-51.0) % MCV (80.0-100.0) fL MCH (25.0-34.0) pg MCHC (32.0-36.0) g/dL RDW Std Deviation (36.4-46.3) fL RDW Coeff of Ebony (11.5-14.5) % Plt Count (130-400) K/uL MPV (9.4-12.4) fL Immature Gran % (Auto) % Neut % (Auto) % Lymph % (Auto) % [place] % (Auto) % Eos % (Auto) % Baso % (Auto) % Neut # (Auto) (1.4-6.5) K/uL Lymph # (Auto) (1.2-3.4) K/uL [place] # (Auto) (0.24-0.82) K/uL Eos # (Auto) (0-0.50) K/uL Baso # (Auto) (0-0.2) K/uL Immature Gran # (Auto) (0.00-0.02) K/uL Platelet Estimate (Normal) Tear Drop Cells Sodium (136-145) mmol/L Potassium (3.5-5.1) mmol/L Chloride (98-107) mmol/L Carbon Dioxide (21-32) mmol/L Anion Gap (3-11) BUN (6-23) mg/dl Creatinine (0.6-1.4) mg/dl Est Cr Clr Drug Dosing Est GFR ( Amer) ml/min Est GFR (Non-Af Amer) ml/min BUN/Creatinine Ratio (10-20) Glucose (70-99(Fasting)) mg/dl Calcium (8.5-10.1) mg/dl Total Bilirubin (0.2-1.0) mg/dl AST (13-39) U/L ALT (7-52) U/L Alkaline Phosphatase (34-104) U/L Troponin I High Sens (0-20) pg/ml Total Protein (6.0-8.3) gm/dl Albumin (3.4-5.0) gm/dl Globulin (2.5-4.0) gm/dl Albumin/Globulin Ratio (0.9-2) Lipase (11-82) U/L TSH (0.300-4.500) uIu/ml Lyme Disease IgG Ab Negative (Negative) Lyme Disease IgM Ab Negative (Negative) SARS-CoV-2, RNA, NAAT NEGATIVE (NEGATIVE) Administered Medications Discontinued Medications Bacitracin (Bacitracin Oint 0.9 Gm Pkt) Confirm Administered Dose 1 appln .ROUTE .STK-MED ONE Stop: 07/25/22 12:10 Last Admin: 07/25/22 13:59 Dose: 1 appln Documented By: YUE Cefazolin Sodium (Cefazolin 330 Mg/Ml 1 Gm Vial) Confirm Administered Dose 990 mg .ROUTE .STK-MED ONE Stop: 07/25/22 12:34 Last Admin: 07/25/22 13:59 Dose: 990 mg Documented By: YUE Cefazolin Sodium (Cefazolin 330 Mg/Ml 1 Gm Vial) Confirm Administered Dose 990 mg .ROUTE .STK-MED ONE Stop: 07/25/22 13:20 Last Admin: 07/25/22 13:59 Dose: 990 mg Documented By: YUE Fentanyl Citrate (Fentanyl Citrate 100 Mcg/2 Ml Vial) Confirm Administered Dose 100 mcg .ROUTE .STK-MED ONE Stop: 07/25/22 12:34 Last Admin: 07/25/22 14:34 Dose: 100 mcg Documented By: YUE Lidocaine HCl (Lidocaine 1% Local 20 Ml Vial) Confirm Administered Dose 40 ml .ROUTE .STK-MED ONE Stop: 07/25/22 12:10 Last Admin: 07/25/22 13:59 Dose: 40 ml Documented By: YARA Midazolam HCl (Midazolam Hcl 5 Mg/Ml 1 Ml Vial) Confirm Administered Dose 5 mg .ROUTE .STK-MED ONE Stop: 07/25/22 12:33 Last Admin: 07/25/22 14:34 Dose: 4 mg Documented By: YUE Sterile Water (Water, Sterile For Inj 10 Ml Vial) Confirm Administered Dose 10 ml .ROUTE .STK-MED ONE Stop: 07/25/22 12:11 Last Admin: 10/10/22 13:59 Dose: 10 ml Documented By: YARA Vancomycin HCl (Vancomycin Hcl 1000mg/20ml Vial) Confirm Administered Dose 50 mg .ROUTE .STK-MED ONE Stop: 07/25/22 12:11 Last Admin: 07/25/22 13:59 Dose: 50 mg Documented By: YARA Imaging Data Radiologist's Impression: Chest X-Ray 07/25/22 10:28 XR chest 1V portable HISTORY: 76 years-old Male Chest Pain chest pain COMPARISON: Chest radiograph 09/06/2021 TECHNIQUE: AP view of the chest FINDINGS: Cardiac silhouette is enlarged. Eventration of the right hemidiaphragm. No pneumothorax, pleural effusion, airspace consolidation or overt pulmonary edema. The bones of the chest appear grossly intact. Degenerative changes of the shoulders and spine. IMPRESSION: No acute process. ACT 112: Negative or not required by law. The above report was generated using voice recognition software. It may contain grammatical, syntax or spelling errors. Electronically signed by: Mando Desai M.D. 07/25/2022 10:51 AM Discharge Plan Visit Data Chief Complaint: Bradycardia Stated Complaint: BRADYCARDIA ED Provider: Lauro Rosa Discharge Problem: AV block, Mobitz II, Weak, High serum chloride
--- NOTE | 2022-07-25 10:52 | XRay Report ---
XR chest 1V portable HISTORY: 76 years-old Male Chest Pain chest pain COMPARISON: Chest radiograph 09/06/2021 TECHNIQUE: AP view of the chest FINDINGS: Cardiac silhouette is enlarged. Eventration of the right hemidiaphragm. No pneumothorax, pleural effu kt, airspace consolidation or overt pulmonary edema. The bones of the chest appear grossly intact. Degenerative changes of the shoulders and spine. IMPRESSION: No acute process. ACT 112: Negative or not required by law. The above report was generated using voice recognition software. It may contain grammatical, syntax o r spelling errors. Electronically signed by: Mando Desai M.D. 07/25/2022 10:51 AM
[2022-07-25 11:14] LABS: Troponin I High Sensitivity 24.3 pg/ml (0-20)
[2022-07-25 11:15] LABS: Basophils # (auto) 0.05 K/uL (0-0.2); Basophils % (auto) 0.5 %; Eosinophils # (auto) 0.33 K/uL (0-0.50); Eosinophils % (auto) 3.3 %; Hematocrit (blood only) 41.9 % (40.1-51.0); Immature Granulocytes # (auto) 0.08 K/uL (0.00-0.02); Immature Granulocytes % (auto) 0.8 %; Lymphocytes # (auto) 2.17 K/uL (1.2-3.4); Lymphocytes % (auto) 21.6 %; Mean Corpuscular Hemoglobin 29.9 pg (25.0-34.0); Mean Corpuscular Hgb Conc 33.4 g/dL (32.0-36.0); Mean Corpuscular Volume 89.3 fL (80.0-100.0); Mean Platelet Volume 11.9 fL (9.4-12.4); Monocytes # (auto) 0.52 K/uL (0.24-0.82); Monocytes % (auto) 5.2 %; Neutrophils # (auto) 6.89 K/uL (1.4-6.5); Neutrophils % (auto) 68.6 %; Platelet Count 58 K/uL (130-400); Platelet Estimate Decreased (Normal); RDW Coefficient of Variation 13.7 % (11.5-14.5); RDW Standard Deviation 44.4 fL (36.4-46.3); Red Blood Count 4.69 M/uL (4.63-6.08); Tear Drop Cells 2+; White Blood Count 10.04 K/ul (4.8-10.8)
[2022-07-25 11:21] LABS: Alanine Aminotransferase 18 U/L (7-52); Albumin Globulin Ratio 1.1 (0.9-2); Albumin Level 3.6 gm/dl (3.4-5.0); Alkaline Phosphatase 65 U/L (34-104); Anion Gap 5 (3-11); Aspartate Aminotransferase 19 U/L (13-39); BUN Creatinine Ratio 15.1 (10-20); Bilirubin,Total 0.8 mg/dl (0.2-1.0); Blood Urea Nitrogen 23 mg/dl (6-23); Calcium 8.9 mg/dl (8.5-10.1); Carbon Dioxide 28 mmol/L (21-32); Chloride 109 mmol/L (98-107); Est GFR (African American) 51.6 ml/min; Est GFR (Non-African American) 44.5 ml/min; Globulin 3.2 gm/dl (2.5-4.0); Glucose 146 mg/dl (70-99(Fasting)); Lipase 45 U/L (11-82); Potassium 3.9 mmol/L (3.5-5.1); Sodium 142 mmol/L (136-145); Total Protein 6.8 gm/dl (6.0-8.3)
--- NOTE | 2022-07-25 11:30 | Cardiology Consultation ---
Date of Consultation July 25, 2022 Assessment & Plan (1) Bradycardia: (2) Mobitz II: (3) Obesity (BMI 35.0-39.9 without comorbidity): (4) Diabetic peripheral neuropathy: (5) GERD without esophagitis: Plan The patient's last echocardiogram completed at our office indicates normal LV function with an estimated left ventricular ejection fraction of around 60%. He will need a pacemaker and I will consult EP. He is on a very small dose of carvedilol which of course to be held for now. Otherwise the patient is hemodynamically stable. I would make him n.p.o. at this time. The patient has a history of ITP with chronically low platelets, this should not be a problem with pacemaker placement. History of Present Illness History of Present Illness This is a 76-year-old male patient with a history of obesity, type 2 diabetes with neuropathy, obstructive sleep apnea, HFpEF, and coronary artery disease receiving a bare-metal stent in the ramus artery in 2003. The patient was in his usual state of health. He does have a history of GERD and was having problems with feeling bloated after he would eat. He was scheduled for and was to have an endoscopy completed this morning but upon arrival he was noted to be bradycardic with evidence of [place]itz type II heart block. Previous EKGs have shown a sinus mechanism with a markedly prolonged VT interval. Patient was referred to the emergency department. He currently is asymptomatic. He has not recently had any dizziness or lightheadedness. He has had no syncope or presyncope. No symptoms that would suggest advancing congestive heart failure. 1.Coronary artery disease, status post PCI with a bare-metal stent to the ramus in December 2013, with nonobstructive disease of the circumflex and RCA. 2.Diastolic congestive heart failure 3.Obstructive sleep apnea. 4.Type II diabetes mellitus with neuropathy 5.Chronic kidney disease, stage III 6.ITP. 7.COPD. 8.Hypertension. 9.Diabetes. 10.History of GERD with esophagitis, gastritis, hiatal hernia, internal hemorrhoids, diverticulosis, hepatic steatosis. No evidence of gastroparesis or rapid gastric emptying via gastric emptying study in January 2022. 11.+ Covid-19 infection in August 2021 Allergies Allergy/AdvReac Type Severity Reaction Status Date / Time immune globulin,gamma (IgG) Allergy Unknown GAMUNEX- Verified 07/25/22 08:21 human SHAKING, CHILLS, FEVER lisinopril AdvReac Mild COUGH Verified 07/25/22 08:21 Home Medications Medication Instructions Recorded Confirmed Type aspirin 81 mg tablet,delayed 81 mg PO HS 03/05/19 07/25/22 History release cyanocobalamin (vitamin B-12) 1,000 mcg PO Q2D 03/05/19 07/25/22 History 1,000 mcg tablet,extended release nitroglycerin 0.4 mg sublingual 0.4 mg sublingual UD PRN Chest 03/05/19 07/25/22 History tablet Pain #25 tabs carvedilol 3.125 mg tablet 3.125 mg PO BID #180 tabs 04/05/19 07/25/22 Rx gabapentin 300 mg capsule 600 mg PO BID #360 caps 04/05/19 07/25/22 Rx losartan 100 mg tablet 100 mg PO QAM #90 tabs 04/05/19 07/25/22 Rx tamsulosin 0.4 mg capsule 0.4 mg PO HS #90 caps 04/05/19 07/25/22 Rx vitamin E (dl, acetate) 180 mg 400 units PO QDL 05/10/19 07/25/22 History (400 unit) capsule CPAP Machine #1 ea 12/05/19 06/30/22 Rx insulin aspart U-100 100 unit/mL 100 unit subcut TIDM 05/19/22 07/25/22 History subcutaneous solution (Novolog U-100 Insulin aspart) insulin glargine 100 unit/mL 55 unit subcut BID 05/19/22 07/25/22 History subcutaneous solution (Lantus U-100 Insulin) rosuvastatin 20 mg tablet 20 mg PO QPM 05/19/22 07/25/22 History zinc 50 mg tablet 50 mg PO QDL 05/19/22 07/25/22 History FreeStyle Honorio 2 [place] (flash #1 ea 06/21/22 06/30/22 Rx glucose scanning reader) FreeStyle Honorio 2 Sensor (flash #7 ea 06/21/22 06/30/22 Rx glucose sensor) cholecalciferol (vitamin D3) 25 50 mcg PO QDL 06/30/22 07/25/22 History mcg (1,000 unit) capsule eplerenone 25 mg tablet 25 mg PO BID 06/30/22 07/25/22 History finasteride 5 mg tablet 5 mg PO BID #90 tabs 06/30/22 07/25/22 Rx furosemide 40 mg tablet 40 mg PO BID 06/30/22 07/25/22 History isosorbide mononitrate 30 mg 30 mg PO QAM 06/30/22 07/25/22 History tablet,extended release 24 hr omega 8-cev-itk-fish oil 1,000 mg 1 cap PO QAM 06/30/22 07/25/22 History (120 mg-180 mg) capsule (Fish Oil) romiplostim 500 mcg subcutaneous 680 mcg subcut WK 06/30/22 07/25/22 History solution trazodone 50 mg tablet 50 mg PO HS sleep/depression #90 06/30/22 07/25/22 Rx tabs esomeprazole magnesium 20 mg 20 mg PO QAM 07/15/22 07/25/22 History capsule,delayed release (Nexium) Patient History Medical History Abdominal bloating REASON FOR UPCOMING PROCEDURE Arthritis BPH (benign prostatic hyperplasia) Cancer s/p nasal lesion excision Coronary artery disease stent x1 (2013) Diabetes mellitus, type 2 IDDM Dyslipidemia GERD (gastroesophageal reflux disease) controlled Hiatal hernia History of difficult venous access Hypertension ITP (idiopathic thrombocytopenic purpura) follows with hematology (Dr. Isaac/[facility]) Sleep apnea CPAP SOB (shortness of breath) on exertion WORSENING OVER LAST 6 MON, PCP AWARE Tear of lateral meniscus of right knee Tear of medial meniscus of right knee Surgical History Difficult intubation 07/14/16 - Glidescope #4, ETT #7.5, Grade 1 View H/O vasectomy History of appendectomy History of cardiac cath stent x1 (2013) History of colonoscopy History of esophagogastroduodenoscopy (EGD) History of laparotomy X 3-ABDOMINAL CYST History of repair of rotator cuff RIGHT - 07/14/16 - Glidescope #4, ETT #7.5, Grade 1 View History of tooth extraction Pilonidal cyst REMOVED S/P right knee arthroscopy Surgery, elective LEFT AXILLARY BENIGN MASS Family History Mother Family hx of colon cancer Family history of diabetes mellitus Hypertension Grandmother (Maternal) Diabetes Family history of diabetes mellitus Aunt Family history of diabetes mellitus Father Stroke Grandfather Myocardial infarction Other No family history of adverse response to anesthesia Denies family history of Ovarian cancer Prostate cancer Breast cancer Colorectal cancer Social History Smoking Status: Former smoker Tobacco Type: Cigarettes Age Started Using Tobacco: 19; Age Quit Using Tobacco: 39; Second Hand Exposure: No; Hx Alcohol Use: Yes Alcohol type: hard liquor Alcohol Intake Frequency: Monthly or Less Hx Substance Use: No Preferred Language: Hebrew Communication Ability: Effective Firearms Sales Associate Required: No Beliefs That Will Affect Care: None marital status: Single Current Living Situation: Alone current occupational status: retired How many Children do You have: 1 Feels Safe at Home: Yes Childhood Exposure to Second-Hand Smoke: No caffeine: Yes Dental Care, Regularly: Yes Physical Activity Frequency: Does not Exercise Seatbelt Use: sometimes Sunscreen Use: No Assistive Devices: CPAP and Hearing Aid - Bilateral Review of Systems Review of Systems: Review of Systems: See HPI for pertinent positives. All other 10 point review of systems are negative. Physical Exam Physical Exam: General: no acute distress and stated age Head: normocephalic, no masses, lesions, tenderness or abnormalities Eyes: conjunctiva are pink and non-injected, sclera clear Neck: supple, no adenopathy, no bruits, normal jugular venous pulse, no hepatojugular reflux Chest: normal shape and normal respiratory effort Lungs: clear to auscultation and percussion Cardiac Exam: - irregular rate & rhythm, no murmurs gallops or rubs - normal S1, normal S2 Pulses: 2(+) throughout Abdomen: abdomen soft, non-tender, no abnormal masses and no hepatosplenomegaly Musculoskeletal: no gait disturbance, no joint inflammation, no deforming arthritis Extremities: no edema and no cyanosis Neuro: grossly normal exam Results & Data ([facility]) Vital Signs (Past 12 Hours) Vital Signs Pulse Resp BP Pulse Ox O2 Del Method 07/25/22 10:40 32 L 19 95 Room Air 07/25/22 10:35 41 L 17 181/88 H 94 Room Air 07/25/22 10:43 36 L 21 97 Room Air 07/25/22 10:40 97 Room Air 07/25/22 10:37 Room Air 07/25/22 10:09 33 L 18 179/80 H 95 Laboratory Results Laboratory Results - last 24 hr 07/25/22 07/25/22 07/25/22 10:29 10:29 10:29 WBC 10.04 RBC 4.69 Hgb 14.0 Hct 41.9 MCV 89.3 MCH 29.9 MCHC 33.4 RDW Std Deviation 44.4 RDW Coeff of Ebony 13.7 Plt Count 58 L MPV 11.9 Immature Gran % (Auto) 0.8 Neut % (Auto) 68.6 Lymph % (Auto) 21.6 Collin % (Auto) 5.2 Eos % (Auto) 3.3 Baso % (Auto) 0.5 Neut # (Auto) 6.89 H Lymph # (Auto) 2.17 Collin # (Auto) 0.52 Eos # (Auto) 0.33 Baso # (Auto) 0.05 Immature Gran # (Auto) 0.08 H Platelet Estimate Decreased L Tear Drop Cells 2+ Sodium 142 Potassium 3.9 Chloride 109 H Carbon Dioxide 28 Anion Gap 5 BUN 23 Creatinine 1.52 H Est Cr Clr Drug Dosing Not Reportable Est GFR ( Amer) 51.6 Est GFR (Non-Af Amer) 44.5 BUN/Creatinine Ratio 15.1 Glucose 146 H Calcium 8.9 Total Bilirubin 0.8 AST 19 ALT 18 Alkaline Phosphatase 65 Troponin I High Sens 24.3 H Total Protein 6.8 Albumin 3.6 Globulin 3.2 Albumin/Globulin Ratio 1.1 Lipase 45 TSH Pending Lyme Disease IgG Ab Lyme Disease IgM Ab SARS-CoV-2, RNA, NAAT 07/25/22 07/25/22 10:29 10:37 WBC RBC Hgb Hct MCV MCH MCHC RDW Std Deviation RDW Coeff of Ebony Plt Count MPV Immature Gran % (Auto) Neut % (Auto) Lymph % (Auto) Collin % (Auto) Eos % (Auto) Baso % (Auto) Neut # (Auto) Lymph # (Auto) Collin # (Auto) Eos # (Auto) Baso # (Auto) Immature Gran # (Auto) Platelet Estimate Tear Drop Cells Sodium Potassium Chloride Carbon Dioxide Anion Gap BUN Creatinine Est Cr Clr Drug Dosing Est GFR ( Amer) Est GFR (Non-Af Amer) BUN/Creatinine Ratio Glucose Calcium Total Bilirubin AST ALT Alkaline Phosphatase Troponin I High Sens Total Protein Albumin Globulin Albumin/Globulin Ratio Lipase TSH Lyme Disease IgG Ab Pending Lyme Disease IgM Ab Pending SARS-CoV-2, RNA, NAAT NEGATIVE Medications Administered Medications aspirin 81 mg tablet,delayed release 81 mg PO HS 03/05/19 [History Confirmed 07/25/22] cyanocobalamin (vitamin B-12) 1,000 mcg tablet,extended release 1,000 mcg PO Q2D 03/05/19 [History Confirmed 07/25/22] nitroglycerin 0.4 mg sublingual tablet 0.4 mg sublingual UD PRN Chest Pain #25 tabs 03/05/19 [History Confirmed 07/25/22] carvedilol 3.125 mg tablet 3.125 mg PO BID #180 tabs 04/05/19 [Rx Confirmed 07/25/22] gabapentin 300 mg capsule 600 mg PO BID #360 caps 04/05/19 [Rx Confirmed 07/25/22] losartan 100 mg tablet 100 mg PO QAM #90 tabs 04/05/19 [Rx Confirmed 07/25/22] tamsulosin 0.4 mg capsule 0.4 mg PO HS #90 caps 04/05/19 [Rx Confirmed 07/25/22] vitamin E (dl, acetate) 180 mg (400 unit) capsule 400 units PO QDL 05/10/19 [History Confirmed 07/25/22] CPAP Machine #1 ea 12/05/19 [Rx Confirmed 06/30/22] insulin aspart U-100 100 unit/mL subcutaneous solution (Novolog U-100 Insulin aspart) 100 unit subcut TIDM 05/19/22 [History Confirmed 07/25/22] insulin glargine 100 unit/mL subcutaneous solution (Lantus U-100 Insulin) 55 unit subcut BID 05/19/22 [History Confirmed 07/25/22] rosuvastatin 20 mg tablet 20 mg PO QPM 05/19/22 [History Confirmed 07/25/22] zinc 50 mg tablet 50 mg PO QDL 05/19/22 [History Confirmed 07/25/22] FreeStyle Honorio 2 [place] (flash glucose scanning reader) #1 ea 06/21/22 [Rx Confirmed 06/30/22] FreeStyle Honorio 2 Sensor (flash glucose sensor) #7 ea 06/21/22 [Rx Confirmed 06/30/22] cholecalciferol (vitamin D3) 25 mcg (1,000 unit) capsule 50 mcg PO QDL 06/30/22 [History Confirmed 07/25/22] eplerenone 25 mg tablet 25 mg PO BID 06/30/22 [History Confirmed 07/25/22] finasteride 5 mg tablet 5 mg PO BID #90 tabs 06/30/22 [Rx Confirmed 07/25/22] furosemide 40 mg tablet 40 mg PO BID 06/30/22 [History Confirmed 07/25/22] isosorbide mononitrate 30 mg tablet,extended release 24 hr 30 mg PO QAM 06/30/22 [History Confirmed 07/25/22] omega 0-nhs-gnq-fish oil 1,000 mg (120 mg-180 mg) capsule (Fish Oil) 1 cap PO QAM 06/30/22 [History Confirmed 07/25/22] romiplostim 500 mcg subcutaneous solution 680 mcg subcut WK 06/30/22 [History Confirmed 07/25/22] trazodone 50 mg tablet 50 mg PO HS sleep/depression #90 tabs 06/30/22 [Rx Confirmed 07/25/22] esomeprazole magnesium 20 mg capsule,delayed release (Nexium) 20 mg PO QAM 07/15/22 [History Confirmed 07/25/22]
[2022-07-25 11:58] LABS: Lyme Ab IgG w/WB Rflx Negative (Negative); Lyme Ab IgM w/WB Rflx Negative (Negative)
[2022-07-25] MEDS ORDERED: LIDOCAINE 1% LOCAL 20 ML VIAL ONE (12:09)
[2022-07-25] MEDS ORDERED: BACITRACIN OINT 0.9 GM PKT ONE (12:09)
[2022-07-25] MEDS ORDERED: VANCOMYCIN HCL 1000MG/20ML VIAL ONE (12:10)
[2022-07-25] MEDS ORDERED: WATER, STERILE FOR INJ 10 ML VIAL ONE (12:10)
[2022-07-25] MEDS ORDERED: MIDAZOLAM HCL 5 MG/ML 1 ML VIAL ONE (12:32)
[2022-07-25] MEDS ORDERED: ceFAZolin 330 MG/ML 1 GM VIAL ONE ×2 (12:33→13:19)
[2022-07-25] MEDS ORDERED: fentaNYL citrate 100 MCG/2 ML VIAL ONE (12:33)
--- NOTE | 2022-07-25 13:00 | Cardiology Consultation ---
Date of Consultation July 25, 2022 Assessment & Plan (1) Bradycardia: (2) CAD (coronary artery disease): (3) ITP (idiopathic thrombocytopenic purpura): Plan 1. Bradycardia: He has severe bradycardia due to high-grade AV block, I think it is likely a cause of his exertional symptoms occurring recently. Although he is on low-dose carvedilol he needs some amount of beta-blockade for his coronary disease and is very unlikely this low dose would cause this degree of AV block at rest. I believe he should have a pacemaker. Almost certainly his AV conduction disease will progress. I discussed the indications, procedure, risks and alternatives of pacemaker implantation with him and he understands and agrees to proceed. Consent obtained. I also discussed conscious sedation and he is agreeable. Consent obtained. 2. Coronary disease: He has coronary disease but does not have exertional angina. 3. ITP: His platelet count should be acceptable for device implantation. History of Present Illness Reason for Consultation: High-grade AV block History of Present Illness This is a 76-year-old male with a history of coronary artery disease and first- degree AV block who presented to the GI lab today and was noted to be bradycardic with a heart rate in the 30s at times. Electrocardiography demonstrates high-grade AV block. He is on very low doses of beta-blockade (carvedilol 3.125 mg twice daily) which she should remain on for his coronary artery disease. This is unlikely to be a cause of this arrhythmia in any case. Recent echocardiography shows normal left ventricular systolic function. He does notice that he has a little bit more trouble with exertion than he has in the past. He has noticed for the last several months. He has had no exertional chest pain to suggest ischemia. He has had no lightheadedness, dizziness, presyncope or syncope. Allergies Allergy/AdvReac Type Severity Reaction Status Date / Time immune globulin,gamma (IgG) Allergy Unknown GAMUNEX- Verified 07/25/22 08:21 human SHAKING, CHILLS, FEVER lisinopril AdvReac Mild COUGH Verified 07/25/22 08:21 Home Medications Medication Instructions Recorded Confirmed Type aspirin 81 mg tablet,delayed 81 mg PO HS 03/05/19 07/25/22 History release cyanocobalamin (vitamin B-12) 1,000 mcg PO Q2D 03/05/19 07/25/22 History 1,000 mcg tablet,extended release nitroglycerin 0.4 mg sublingual 0.4 mg sublingual UD PRN Chest 03/05/19 07/25/22 History tablet Pain #25 tabs carvedilol 3.125 mg tablet 3.125 mg PO BID #180 tabs 04/05/19 07/25/22 Rx gabapentin 300 mg capsule 600 mg PO BID #360 caps 04/05/19 07/25/22 Rx losartan 100 mg tablet 100 mg PO QAM #90 tabs 04/05/19 07/25/22 Rx tamsulosin 0.4 mg capsule 0.4 mg PO HS #90 caps 04/05/19 07/25/22 Rx vitamin E (dl, acetate) 180 mg 400 units PO QDL 05/10/19 07/25/22 History (400 unit) capsule CPAP Machine #1 ea 12/05/19 06/30/22 Rx insulin aspart U-100 100 unit/mL 100 unit subcut TIDM 05/19/22 07/25/22 History subcutaneous solution (Novolog U-100 Insulin aspart) insulin glargine 100 unit/mL 55 unit subcut BID 05/19/22 07/25/22 History subcutaneous solution (Lantus U-100 Insulin) rosuvastatin 20 mg tablet 20 mg PO QPM 05/19/22 07/25/22 History zinc 50 mg tablet 50 mg PO QDL 05/19/22 07/25/22 History FreeStyle Honorio 2 [place] (flash #1 ea 06/21/22 06/30/22 Rx glucose scanning reader) FreeStyle Honorio 2 Sensor (flash #7 ea 06/21/22 06/30/22 Rx glucose sensor) cholecalciferol (vitamin D3) 25 50 mcg PO QDL 06/30/22 07/25/22 History mcg (1,000 unit) capsule eplerenone 25 mg tablet 25 mg PO BID 06/30/22 07/25/22 History finasteride 5 mg tablet 5 mg PO BID #90 tabs 06/30/22 07/25/22 Rx furosemide 40 mg tablet 40 mg PO BID 06/30/22 07/25/22 History isosorbide mononitrate 30 mg 30 mg PO QAM 06/30/22 07/25/22 History tablet,extended release 24 hr omega 7-vvv-ajv-fish oil 1,000 mg 1 cap PO QAM 06/30/22 07/25/22 History (120 mg-180 mg) capsule (Fish Oil) romiplostim 500 mcg subcutaneous 680 mcg subcut WK 06/30/22 07/25/22 History solution trazodone 50 mg tablet 50 mg PO HS sleep/depression #90 06/30/22 07/25/22 Rx tabs esomeprazole magnesium 20 mg 20 mg PO QAM 07/15/22 07/25/22 History capsule,delayed release (Nexium) Patient History Medical History Abdominal bloating REASON FOR UPCOMING PROCEDURE Arthritis BPH (benign prostatic hyperplasia) Cancer s/p nasal lesion excision Coronary artery disease stent x1 (2013) Diabetes mellitus, type 2 IDDM Dyslipidemia GERD (gastroesophageal reflux disease) controlled Hiatal hernia History of difficult venous access Hypertension ITP (idiopathic thrombocytopenic purpura) follows with hematology (Dr. Isaac/[facility]) Sleep apnea CPAP SOB (shortness of breath) on exertion WORSENING OVER LAST 6 MON, PCP AWARE Tear of lateral meniscus of right knee Tear of medial meniscus of right knee Surgical History Difficult intubation 07/14/16 - Glidescope #4, ETT #7.5, Grade 1 View H/O vasectomy History of appendectomy History of cardiac cath stent x1 (2013) History of colonoscopy History of esophagogastroduodenoscopy (EGD) History of laparotomy X 3-ABDOMINAL CYST History of repair of rotator cuff RIGHT - 07/14/16 - Glidescope #4, ETT #7.5, Grade 1 View History of tooth extraction Pilonidal cyst REMOVED S/P right knee arthroscopy Surgery, elective LEFT AXILLARY BENIGN MASS Family History Mother Family hx of colon cancer Family history of diabetes mellitus Hypertension Grandmother (Maternal) Diabetes Family history of diabetes mellitus Aunt Family history of diabetes mellitus Father Stroke Grandfather Myocardial infarction Other No family history of adverse response to anesthesia Denies family history of Ovarian cancer Prostate cancer Breast cancer Colorectal cancer Social History Smoking Status: Former smoker Tobacco Type: Cigarettes Age Started Using Tobacco: 19; Age Quit Using Tobacco: 39; Second Hand Exposure: No; Hx Alcohol Use: Yes Alcohol type: hard liquor Alcohol Intake Frequency: Monthly or Less Hx Substance Use: No Preferred Language: [place] Rican Communication Ability: Effective Supervisor Cigar Making Hand Required: No Beliefs That Will Affect Care: None marital status: Single Current Living Situation: Alone current occupational status: retired How many Children do You have: 1 Feels Safe at Home: Yes Childhood Exposure to Second-Hand Smoke: No caffeine: Yes Dental Care, Regularly: Yes Physical Activity Frequency: Does not Exercise Seatbelt Use: sometimes Sunscreen Use: No Assistive Devices: CPAP and Hearing Aid - Bilateral Review of Systems Review of Systems: All systems reviewed & are unremarkable except as noted in HPI & below Physical Exam Physical Exam: Constitutional: Alert, cooperative and in no distress. HEENT: Unremarkable Neck: No jugular venous distention, carotid pulses are normal and equal bilaterally without bruits. Pulmonary: Clear to auscultation bilaterally. Cardiac: Regular slow rhythm with no murmur, gallop or rub. Abdomen: Soft, nontender with normal bowel sounds. Extremities: No edema. Distal pulses intact. Neurologic: No focal findings. Gait was not tested. Skin: No rash, ecchymoses or petechiae. Results & Data ([facility]) Vital Signs (Past 12 Hours) Vital Signs Pulse Resp BP Pulse Ox O2 Del Method 07/25/22 12:00 45 L 13 96 Room Air 07/25/22 11:59 170/74 H 07/25/22 11:59 47 L 20 07/25/22 11:50 35 L 14 96 Room Air 07/25/22 11:40 35 L 16 96 Room Air 07/25/22 11:30 38 L 19 96 Room Air 07/25/22 11:20 32 L 21 96 Room Air 07/25/22 11:10 34 L 17 95 Room Air 07/25/22 11:00 33 L 12 96 Room Air 07/25/22 10:50 31 L 19 97 Room Air 07/25/22 10:40 32 L 19 95 Room Air 07/25/22 10:35 41 L 17 181/88 H 94 Room Air 07/25/22 10:43 36 L 21 97 Room Air 07/25/22 10:40 97 Room Air 07/25/22 10:37 Room Air 07/25/22 10:09 33 L 18 179/80 H 95 PG Care Time/CCT Total # of Minutes Spent Total Time Spent with Patient: Total time spent is greater than 50% in coordination of care (as documented) at patient's floor/unit and/or counseling patient: Coding Level of Care Code 63892 Initial Inpt Care Lvl 3 Diagnoses Bradycardia R00.1 CAD (coronary artery disease) I25.10 Coronary Disease-Associated Artery/Lesion type: [place] artery [place] vs. transplanted heart: [place] heart Associated angina: without angina ITP (idiopathic thrombocytopenic purpura) D69.3 (1) CAD (coronary artery disease) Coronary Disease-Associated Artery/Lesion type: [place] artery [place] vs. transplanted heart: [place] heart Associated angina: without angina Qualified Code(s): I25.10 - Atherosclerotic heart disease of [place] coronary artery without angina pectoris
--- NOTE | 2022-07-25 13:05 | Pre Anesthesia Assessment ---
Date of Service July 25, 2022 Pre Sedation Assessment Vital Signs Pulse Resp BP Pulse Ox O2 Del Method 07/25/22 12:00 45 L 13 96 Room Air 07/25/22 11:59 170/74 H 07/25/22 11:59 47 L 20 07/25/22 11:50 35 L 14 96 Room Air 07/25/22 11:40 35 L 16 96 Room Air 07/25/22 11:30 38 L 19 96 Room Air 07/25/22 11:20 32 L 21 96 Room Air 07/25/22 11:10 34 L 17 95 Room Air 07/25/22 11:00 33 L 12 96 Room Air 07/25/22 10:50 31 L 19 97 Room Air 07/25/22 10:40 32 L 19 95 Room Air 07/25/22 10:35 41 L 17 181/88 H 94 Room Air 07/25/22 10:43 36 L 21 97 Room Air 07/25/22 10:40 97 Room Air 07/25/22 10:37 Room Air 07/25/22 10:09 33 L 18 179/80 H 95 Cardiovascular RRR, no murmur, no edema + bradycardic Respiratory normal respiratory effort, lungs clear to auscultation Pre-Sedation Airway Assessment Smoking Status: Former smoker Hx Sleep Apnea: Yes Short, Thick Neck: Yes Thyromental Distance: > or= 3.5 Finger Breadths Oral Cavity: + WNL Mallampati Class: IV ASA: ASA3 NPO Status Date of Last Intake of Fluids: 07/24/22 Time of Last Intake of Fluids: 19:00 Date of Last Intake of Solid Food: 07/24/22 Procedure Planning Contraindications for Sedation: none Current Medications Reviewed: Yes Notes The planned sedation has been discussed with the patient. Informed Consent was obtained. I have identified the patient, determined the appropriateness of sedation and have assessed the patient immediately prior to the procedure. All medicine(s) and interventions are by my order.
[2022-07-25] MEDS ORDERED: KETOROLAC TROMETHAMINE 10 MG TABLET PO PRN (14:30)
[2022-07-25] MEDS ORDERED: ACETAMINOPHEN 325 MG TAB PO PRN ×2 (14:30→15:08)
--- NOTE | 2022-07-25 14:30 | Electrophysiology Report ---
Date of Service July 25, 2022 Electrophysiology Procedure Electrophysiology Procedure Report Preoperative diagnosis: Symptomatic high-grade AV block Postoperative diagnosis: Same Procedure: Dual-chamber pacemaker implantation Surgeon: Landon Dominguez MD Estimated blood loss: 20 cc Specimens: None Anesthesia: Local with sedation Procedure details: After obtaining informed consent for the procedure, the patient was brought to the laboratory and prepped and draped in the standard sterile manner. The left prepectoral region was anesthetized with 1% lidocaine local anesthetic and left axillary venipuncture was performed by percutaneous technique and a guidewire placed through the left subclavian vein into the superior vena cava. The area was further infiltrated with 1% lidocaine local anesthetic and a 5 cm incision was made parallel to the left clavicle and 2 cm below it and carried down to the anterior pectoralis fascia. A pacemaker pocket was formed by blunt dissection anterior to the pectoralis fascia and a vancomycin soaked sponge was placed in the pocket. An 8.5 [place] Medtronic lead introducer was placed over the guidewire into the left subclavian vein, the dilator and guidewire were removed and a bipolar active fixation steroid tipped ventricular lead was advanced through the introducer into the superior vena cava. A guidewire was placed through the introducer and the introducer was stripped from the lead and guidewire. Another 8.5 [place] Medtronic lead introducer was placed over the guidewire into the left subclavian vein, the dilator and guidewire were removed and a bipolar active fixation steroid tipped atrial lead was advanced through the introducer into the superior vena cava. A guidewire was placed back through the introducer and the introducer was stripped from the lead and guidewire. Using a curved stylette the ventricular lead was advanced through the right ventricular outflow tract into the pulmonary artery and then using a straight stylette was positioned in the right ventricular apex. The screw was extended fixing the lead in position. Pacing and sensing thresholds were evaluated in bipolar configuration and are recorded on the implant data sheet. Using a curved stylette the atrial lead was positioned in the region of the atrial appendage and the screw extended fixing the lead in position. Pacing and sensing thresholds were evaluated in bipolar configuration and are recorded on the implant data sheet. Once the leads were in position they were attached to the anterior pectoralis fascia using 2 sutures of 2-0 silk around each lead collar. The vancomycin soaked sponge was removed from the pocket, hemostasis was obtained, the pacemaker was attached to the leads and placed in the pocket with the leads coiled beneath it. The incision was closed with a running double subcutaneous closure of 3-0 Vicryl absorbable suture, followed by running subcuticular skin closure of 4-0 Vicryl absorbable suture. Bacitracin ointment was placed on the incision and a dressing applied. [facility] Electrophysiology codes Indication for Procedure (1) High-grade atrioventricular block: Pacing Procedure 1: Pacin Insert/Replace Pacer A & V PG Moderate Sedation Codes Moderate Sedation Codes Procedure 1: Sedation/Anesthesia: 03725 Mod Sedation by the same physician;Init15 Min Child Age 5 & Up Procedure 2: Sedation/Anesthesia: 25516 Mod Sedation by the same physician; Ea [id number] Minutes
[2022-07-25] MEDS ORDERED: GLUCOSE 10 TAB/TUBE PO PRN (15:08)
[2022-07-25] MEDS ORDERED: ATROPINE SULFATE 0.1 MG/ML 10ML SYR IV PRN (15:08)
[2022-07-25] MEDS ORDERED: DEXTROSE 50% 50 ML SYRINGE IV PRN (15:08)
[2022-07-25] MEDS ORDERED: CARBOHYDRATES FOR HYPOGLYCEMIA PO PRN (15:08)
[2022-07-25] MEDS ORDERED: GLUCAGON FOR INJ 1 MG VIAL SQ PRN (15:08)
[2022-07-25] MEDS ORDERED: GLUCOSE 40% GEL 15 GM TUBE PO PRN (15:08)
[2022-07-25] MEDS ORDERED: ONDANSETRON INJ 2 MG/ML 2 ML VIAL IV PRN (15:08)
[2022-07-25] MEDS ORDERED: CYANOCOBALAMIN (B-12) 500 MCG TABLET PO SCH (15:30)
--- NOTE | 2022-07-25 15:50 | Electrocardiogram Report ---
Test Reason : Blood Pressure : / mmHG Vent. Rate : 033 BPM Atrial Rate : 033 BPM P-R Int : 240 ms QRS Dur : 072 ms QT Int : 506 ms P-R-T Axes : 077 026 129 degrees QTc Int : 374 ms Marked sinus bradycardia with 1st degree A-V block and intermittent 2:1 AV block Abnormal ECG When compared with ECG of 06-SEP-2021 19:20, Significant changes have occurred Confirmed by Jose Roberto Yap ([id number]) on 07/25/2022 3:49:52 PM Referred By: Confirmed By:Jose Roberto Yap
--- NOTE | 2022-07-25 15:52 | Electrocardiogram Report ---
Test Reason : Blood Pressure : / mmHG Vent. Rate : 032 BPM Atrial Rate : 032 BPM P-R Int : 236 ms QRS Dur : 068 ms QT Int : 508 ms P-R-T Axes : 075 023 110 degrees QTc Int : 370 ms Marked sinus bradycardia with 1st degree A-V block and intermittent 2:1 AV block Abnormal ECG When compared with ECG of 25-JUL-2022 09:16, (unconfirmed) Non-specific change in ST segment in Anterior leads Confirmed by Jose Roberto Yap ([id number]) on 07/25/2022 3:52:30 PM Referred By: Confirmed By:Jose Roberto Yap
--- NOTE | 2022-07-25 16:06 | Post Anesthesia Assessment ---
Date of Service July 25, 2022 Post Sedation Assessment Vital Signs Temp Pulse Pulse Resp BP BP Pulse Ox 07/25/22 15:15 36.6 C 60 19 182/89 H 96 07/25/22 14:44 60 16 148/84 H 94 07/25/22 14:30 60 16 162/85 H 94 07/25/22 12:00 45 L 13 96 07/25/22 11:59 170/74 H 07/25/22 11:59 47 L 20 07/25/22 11:50 35 L 14 96 07/25/22 11:40 35 L 16 96 07/25/22 11:30 38 L 19 96 07/25/22 11:20 32 L 21 96 07/25/22 11:10 34 L 17 95 07/25/22 11:00 33 L 12 96 07/25/22 10:50 31 L 19 97 07/25/22 10:40 32 L 19 95 07/25/22 10:35 41 L 17 181/88 H 94 07/25/22 10:43 36 L 21 97 07/25/22 10:40 97 07/25/22 10:37 07/25/22 10:09 33 L 18 179/80 H 95 O2 Del Method 07/25/22 15:15 Room Air 07/25/22 14:44 Room Air 07/25/22 14:30 Room Air 07/25/22 12:00 Room Air 07/25/22 11:59 07/25/22 11:59 07/25/22 11:50 Room Air 07/25/22 11:40 Room Air 07/25/22 11:30 Room Air 07/25/22 11:20 Room Air 07/25/22 11:10 Room Air 07/25/22 11:00 Room Air 07/25/22 10:50 Room Air 07/25/22 10:40 Room Air 07/25/22 10:35 Room Air 07/25/22 10:43 Room Air 07/25/22 10:40 Room Air 07/25/22 10:37 Room Air 07/25/22 10:09 Recovery Score Activity: Moves 4 extremities Respiration: Deep Breath/Cough Circulation: +/-20% PreAnes Value Consciousness: Fully Awake Oxygen Saturation: > 92% On Room Air Post Anesthesia Score: 10 Discharge Sedation Level of Care: Fast Track Phase II Post Sedation Plan On clinical assessment, the patient appears to have tolerated the sedation without complications. Patient is recovering as anticipated. Patient will continue to be monitored by nursing and may be discharged when sedation discharge criteria are met per below protocol. Upon Completions of procedure up to 15 minutes continue every 5 minute vital signs and the P.A.R. score; then discharge to a Phase I or Fast Track to Phase II per the following guidelines: * Discharge Patient to appropriate Phase II area if PAR is 8 or greater or return to pre- procedure baseline. The post - procedure orders will be as directed. * If PAR score is less than 8 or not return to pre-procedure baseline then patient will follow Phase I monitoring till PAR is reached for Phase II. The Phase I may be done in procedure room or may call to secure a Phase I area. * If naloxone or flumazenil are used for reversal, hold in Phase I for continued monitoring from when last reversal dose was given for a minimum of 60 minutes or longer pending the nurse and/or physician discretion of patient condition before discharge to Phase II. Please call the Sedation Physician to re-evaluate and complete post-note for discharge to Phase II area. Do NOT discharge from procedure sedation or Phase 1 until post- sedation evaluation note is complete by procedure /sedation MD Sedation Discharge Instructions to be given to the patient at discharge to home.
--- NOTE | 2022-07-25 16:06 | Electrocardiogram Report ---
Test Reason : Blood Pressure : / mmHG Vent. Rate : 061 BPM Atrial Rate : 061 BPM P-R Int : 172 ms QRS Dur : 176 ms QT Int : 528 ms P-R-T Axes : 000 -70 101 degrees QTc Int : 531 ms AV dual-paced rhythm Abnormal ECG When compared with ECG of 25-JUL-2022 10:19, (unconfirmed) Electronic ventricular pacemaker now present Vent. rate has increased BY 29 BPM Confirmed by Jose Roberto Yap ([id number]) on 07/25/2022 4:05:27 PM Referred By: REFERRED SELF Confirmed By:Jose Roberto Yap
[2022-07-25] MEDS ORDERED: hydrALAZINE HCL 20 MG/ML VIAL IV PRN (16:36)
[2022-07-25] MEDS: INSULIN ASPART PER UNIT SC SCH ×3 (16:57→20:27)
[2022-07-25] MEDS: FUROSEMIDE 40 MG TAB PO SCH (16:59)
[2022-07-25] MEDS: CHOLECALCIFEROL 1,000 UNITS 25 MCG TAB PO SCH (16:59)
[2022-07-25] MEDS: TOCOPHERYL, DL-ALPHA 400 UNITS 180 MG CAP PO SCH (16:59)
[2022-07-25] MEDS ORDERED: LOSARTAN POTASSIUM 50 MG TAB PO ONE (18:01)
[2022-07-25] MEDS: HEPARIN SOD 5,000 UNIT/0.5 ML VIAL SQ SCH (20:13)
[2022-07-25] MEDS: GABAPENTIN 300 MG CAP PO SCH (20:14)
[2022-07-25] MEDS: FINASTERIDE 5 MG TAB PO SCH (20:14)
[2022-07-25] MEDS: LANTUS PER UNIT CHARGE SQ SCH (20:27)
[2022-07-25] MEDS ORDERED: ASPIRIN 81 MG ECTAB PO SCH (21:00)
[2022-07-25] MEDS ORDERED: ROSUVASTATIN CALCIUM 20 MG TAB PO SCH (21:00)
[2022-07-25] MEDS ORDERED: traZODone HCL 50 MG TAB PO SCH (21:00)
[2022-07-26 07:29] LABS: BUN Creatinine Ratio 15.8 (10-20); Calcium 8.4 mg/dl (8.5-10.1); Creatinine Clr Calc Pharmacy 52.6 ml/min; Est GFR (African American) 54.1 ml/min; Est GFR (Non-African American) 46.7 ml/min; Magnesium 1.9 mg/dl (1.7-2.4); Potassium 3.7 mmol/L (3.5-5.1)
[2022-07-26 07:30] LABS: Troponin I High Sensitivity 73.8 pg/ml (0-20)
[2022-07-26 07:31] LABS: Hematocrit (blood only) 38.5 % (40.1-51.0); Hemoglobin 13.1 g/dl (14.0-18.0); Mean Corpuscular Hemoglobin 30.3 pg (25.0-34.0); Mean Corpuscular Volume 88.9 fL (80.0-100.0); Mean Platelet Volume 12.6 fL (9.4-12.4); Platelet Count 54 K/uL (130-400); RDW Coefficient of Variation 13.6 % (11.5-14.5); RDW Standard Deviation 44.7 fL (36.4-46.3); Red Blood Count 4.33 M/uL (4.63-6.08)
[2022-07-26 07:38] LABS: Estimated Average Glucose 174 mg/dl; Hemoglobin A1C 7.7 % (4.5-5.6)
[2022-07-26] MEDS: GABAPENTIN 300 MG CAP PO SCH (08:06)
[2022-07-26] MEDS: FINASTERIDE 5 MG TAB PO SCH (08:06)
[2022-07-26] MEDS: FUROSEMIDE 40 MG TAB PO SCH (08:07)
[2022-07-26] MEDS: HEPARIN SOD 5,000 UNIT/0.5 ML VIAL SQ SCH (08:11)
[2022-07-26] MEDS: INSULIN ASPART PER UNIT SC SCH ×2 (08:56→12:24)
[2022-07-26] MEDS: LANTUS PER UNIT CHARGE SQ SCH (08:56)
[2022-07-26] MEDS ORDERED: LOSARTAN POTASSIUM 50 MG TAB PO SCH (09:00)
[2022-07-26] MEDS ORDERED: PANTOprazole 40 MG TAB PO SCH (09:00)
[2022-07-26] MEDS ORDERED: ISOSORBIDE MONO EXTENDED REL 30 MG TABCR PO SCH (09:00)
[2022-07-26] MEDS ORDERED: OMEGA-3 (PURIFIED FISH OIL) 1 GM CAP PO SCH ×2 (09:00)
--- NOTE | 2022-07-26 09:10 | XRay Report ---
XR chest 2V PA/lateral HISTORY: 76 years-old Male EXACT TIME ORDERED Evaluate for pneumothorax and l status post placement of a left subclavian pacer COMPARISON: 07/25/2022 TECHNIQUE: PA and lateral views of the chest FINDINGS: Cardiac silhouette is enlarged. Status post placement of a left subclavian pacer. Eventration of the right hemidiaphragm. No pneumothorax, pleural effusion, airspace consolidation or overt pulmonary tha ma. The bones of the chest appear grossly intact. Degenerative changes of the shoulders and spine. IMPRESSION: Status post placement of a left subclavian pacer. No postprocedural pneumothorax identifi ed. ACT 112: Negative or not required by law. The above report was generated using voice recognition software. It may contain grammatical, syntax o r spelling errors. Electronically signed by: Mando Desai M.D. 07/26/2022 9:07 AM
[2022-07-26] MEDS ORDERED: carvediloL 6.25 MG TAB PO SCH (11:00)
[2022-07-26] MEDS ORDERED: FUROSEMIDE 40 MG TAB PO SCH (11:00)
--- NOTE | 2022-07-26 11:01 | Cardiology Progress Note ---
Date of Service July 26, 2022 Assessment & Plan (1) Bradycardia: (2) Mobitz II: (3) Obesity (BMI 35.0-39.9 without comorbidity): (4) Diabetic peripheral neuropathy: (5) GERD without esophagitis: Plan Status post July 25, 2022 dual chamber Medtronic pacemaker implantation for high degree AV block. Hypertension, uncontrolled ASCVD, status post PCI of the ramus in December 2013, with nonobstructive disease in the LCx and RCA Diastolic congestive heart failure. Volume status: Compensated ITP, Platelet Count 54K Resume carvedilol at the increased dose of 6.25 mg twice per day. Increase Imdur back to patient's typical outpatient dose, 60 mg/day. Reduced furosemide back to outpatient dose, 40 mg/day. Resume eplerenone (Inspra) 25 mg/day (gynecomastia with past use of spironolactone). Wound and activity restrictions discussed with Dr. Dominguez and reviewed with both the patient and his daughter. Wound Check and establish with the [facility] within one week (office aware, will contact patient) Outpatient General Cardiology follow-up within one month. Admission and Anticipated Discharge Date Admission Date: July 25, 2022 Supervising Physician Co-Signing Physician Notes Have seen and examined the patient. I reviewed the medical record and discussed the case with Mr. Ward. Patient is doing well post pacemaker. We will arrange follow-up through our pacer clinic. Subjective Patient seen and examined. Daughter at bedside. Chart, medications, and telemetry reviewed. Status post July 25, 2022 dual-chamber Medtronic pacemaker implantation by Dr. Dominguez for symptomatic high degree heart block. Telemetry: Paced. Chest x-ray this morning with no postprocedural pneumothorax, revealing eventration of the right hemidiaphragm and degenerative changes of the shoulders and spine. Blood pressure elevated throughout hospitalization. Review of Systems Review of Systems: Complete Review of Systems: Chronic shortness of breath. Tolerable incisional chest discomfort. No pleuritic chest pain. No angina. No palpitations. No orthopnea, PND, or edema. No subjective fevers or chills. Complete Review of Systems is as stated above, negative, or noncontributory. Physical Exam Physical Exam: General: A&Ox3. NAD. Laying nearly supine. HENT: Normocephalic. Atraumatic. Eyes: PER. Conjunctiva pink, sclera clear. Neck: No JVD. Chest: Left subclavian dressing is clean, dry, and intact. No surrounding hematoma or concerning ecchymosis. Heart: RRR. + Systolic ejection murmur. No rub. Lungs: Clear to auscultation. Abdomen: +BS. Extremities: No clubbing, cyanosis, or edema. Limited neurological examination is without focal deficits. Pulses: radial=2/4, posterior tibial=1/4. Results & Data ([facility]) Vital Signs (Past 12 Hours) Vital Signs Temp Pulse Pulse Resp BP BP Pulse Ox 07/26/22 08:00 60 07/26/22 08:15 36.7 C 62 18 185/93 H 95 07/26/22 03:15 36.8 C 60 18 151/89 H 96 07/26/22 00:00 36.8 C 63 16 138/65 95 07/26/22 00:09 61 O2 Del Method 07/26/22 08:00 07/26/22 08:15 Room Air 07/26/22 03:15 Room Air 07/26/22 00:00 Room Air 07/26/22 00:09 Laboratory Results Cardiac Enzymes 07/25/22 07/25/22 07/26/22 Range/Units 10:29 15:18 06:45 AST 19 (13-39) U/L Troponin I High Sens 24.3 H 81.1 H* D 73.8 H* (0-20) pg/ml CBC 07/25/22 07/26/22 Range/Units 10:29 06:45 WBC 10.04 9.80 (4.8-10.8) K/ul RBC 4.69 4.33 L (4.63-6.08) M/uL Hgb 14.0 13.1 L (14.0-18.0) g/dl Hct 41.9 38.5 L (40.1-51.0) % Plt Count 58 L 54 L (130-400) K/uL Neut # (Auto) 6.89 H (1.4-6.5) K/uL Lymph # (Auto) 2.17 (1.2-3.4) K/uL [place] # (Auto) 0.52 (0.24-0.82) K/uL Eos # (Auto) 0.33 (0-0.50) K/uL Baso # (Auto) 0.05 (0-0.2) K/uL Comprehensive Metabolic Panel 07/25/22 07/26/22 Range/Units 10:29 06:45 Sodium 142 142 (136-145) mmol/L Potassium 3.9 3.7 (3.5-5.1) mmol/L Chloride 109 H 108 H (98-107) mmol/L Carbon Dioxide 28 30 (21-32) mmol/L BUN 23 23 (6-23) mg/dl Creatinine 1.52 H 1.46 H (0.6-1.4) mg/dl Glucose 146 H 130 H (70-99(Fasting)) mg/dl Calcium 8.9 8.4 L (8.5-10.1) mg/dl AST 19 (13-39) U/L ALT 18 (7-52) U/L Alkaline Phosphatase 65 (34-104) U/L Total Protein 6.8 (6.0-8.3) gm/dl Albumin 3.6 (3.4-5.0) gm/dl Intake and Output 07/25/22 07/26/22 07/26/22 22:59 06:59 14:59 Intake Total 600 / 660 60 / 660 Output Total 725 / 1720 995 / 1720 400 / 400 Balance -125 / -1060 -935 / -1060 -400 / -400 Intake: Oral 600 / 660 60 / 660 Output: Urine 725 / 1720 995 / 1720 400 / 400 Other: Weight 111 kg 113.8 kg Weight Measurement Method Built in [facility] Built in [facility]
--- NOTE | 2022-07-26 11:14 | Cardiology Progress Note ---
Date of Service July 26, 2022 Assessment & Plan (1) Status post placement of cardiac pacemaker: Plan 1. Postop day #1: He is doing very well, the incision looks good. Lead position looks good on x-ray and there is no pneumothorax. He is stable for discharge. 2. Hypertension: His blood pressure is quite elevated, this will need to be treated and now with a pacemaker negative chronotropic medications can be used. He will follow-up with [facility] in their pacemaker follow-up clinic. Admission and Anticipated Discharge Date Admission Date: July 25, 2022 Subjective He is feeling well today. He has no significant incisional discomfort. He thinks he might of been a little short of breath with activities this morning but he has not been very active. No lightheadedness or dizziness. Physical Exam Physical Exam: The incision is clean and dry with no ecchymosis or bleeding. There is no swelling or erythema. Lungs are clear Cardiac rhythm is regular with no rub Results & Data ([facility]) Vital Signs (Past 12 Hours) Vital Signs Temp Pulse Pulse Resp BP BP Pulse Ox 07/26/22 08:00 60 07/26/22 08:15 36.7 C 62 18 185/93 H 95 07/26/22 03:15 36.8 C 60 18 151/89 H 96 07/26/22 00:00 36.8 C 63 16 138/65 95 07/26/22 00:09 61 O2 Del Method 07/26/22 08:00 07/26/22 08:15 Room Air 07/26/22 03:15 Room Air 07/26/22 00:00 Room Air 07/26/22 00:09 Laboratory Results Cardiac Enzymes 07/25/22 07/25/22 07/26/22 Range/Units 10:29 15:18 06:45 AST 19 (13-39) U/L Troponin I High Sens 24.3 H 81.1 H* D 73.8 H* (0-20) pg/ml CBC 07/25/22 07/26/22 Range/Units 10:29 06:45 WBC 10.04 9.80 (4.8-10.8) K/ul RBC 4.69 4.33 L (4.63-6.08) M/uL Hgb 14.0 13.1 L (14.0-18.0) g/dl Hct 41.9 38.5 L (40.1-51.0) % Plt Count 58 L 54 L (130-400) K/uL Neut # (Auto) 6.89 H (1.4-6.5) K/uL Lymph # (Auto) 2.17 (1.2-3.4) K/uL [place] # (Auto) 0.52 (0.24-0.82) K/uL Eos # (Auto) 0.33 (0-0.50) K/uL Baso # (Auto) 0.05 (0-0.2) K/uL Comprehensive Metabolic Panel 07/25/22 07/26/22 Range/Units 10:29 06:45 Sodium 142 142 (136-145) mmol/L Potassium 3.9 3.7 (3.5-5.1) mmol/L Chloride 109 H 108 H (98-107) mmol/L Carbon Dioxide 28 30 (21-32) mmol/L BUN 23 23 (6-23) mg/dl Creatinine 1.52 H 1.46 H (0.6-1.4) mg/dl Glucose 146 H 130 H (70-99(Fasting)) mg/dl Calcium 8.9 8.4 L (8.5-10.1) mg/dl AST 19 (13-39) U/L ALT 18 (7-52) U/L Alkaline Phosphatase 65 (34-104) U/L Total Protein 6.8 (6.0-8.3) gm/dl Albumin 3.6 (3.4-5.0) gm/dl Intake and Output 07/25/22 07/26/22 07/26/22 22:59 06:59 14:59 Intake Total 600 / 660 60 / 660 Output Total 725 / 1720 995 / 1720 400 / 400 Balance -125 / -1060 -935 / -1060 -400 / -400 Intake: Oral 600 / 660 60 / 660 Output: Urine 725 / 1720 995 / 1720 400 / 400 Other: Weight 111 kg 113.8 kg Weight Measurement Method [facility] Diagnostic Findings Telemetry: Consistent ventricular pacing since pacemaker implantation, no other arrhythmia. Postop ECG:AV sequential pacing with appropriate atrial and ventricular capture Chest x-ray: Good lead position, no pneumothorax Pacemaker evaluation: Excellent pacing and sensing characteristics. Device reprogrammed to MVPR mode PG Care Time/CCT Total # of Minutes Spent Total Time Spent with Patient: Total time spent is greater than 50% in coordination of care (as documented) at patient's floor/unit and/or counseling patient: Coding Level of Care Code 35297 Post Operative Follow-Up Diagnoses Status post placement of cardiac pacemaker Z95.0 CPT Codes Dual Lead Pacemaker System - 90300 ([id number])
[2022-07-26] MEDS: TOCOPHERYL, DL-ALPHA 400 UNITS 180 MG CAP PO SCH (11:46)
[2022-07-26] MEDS: CHOLECALCIFEROL 1,000 UNITS 25 MCG TAB PO SCH (11:46)
--- NOTE | 2022-07-26 13:56 | Communication Note ---
Date of Service: July 26, 2022 By CMS guidelines, a determination that the admission or continued stay is not medically necessary has been made by a member of the UR committee and a ph ysician for this hospital stay, therefore a Code 44 will be completed and the Inpatient admission will be changed to outpatient.
--- NOTE | 2022-07-26 14:57 | Electrocardiogram Report ---
Test Reason : Blood Pressure : / mmHG Vent. Rate : 063 BPM Atrial Rate : 063 BPM P-R Int : 178 ms QRS Dur : 164 ms QT Int : 512 ms P-R-T Axes : 024 -71 097 degrees QTc Int : 523 ms Atrial-sensed ventricular-paced rhythm Abnormal ECG When compared with ECG of 25-JUL-2022 14:28, Vent. rate has increased BY 2 BPM Confirmed by Jose Roberto Yap ([id number]) on 07/26/2022 2:57:17 PM Referred By: REFERRED SELF Confirmed By:Jose Roberto Yap
[2022-07-27] MEDS ORDERED: ISOSORBIDE MONO EXTENDED REL 60 MG TABCR PO SCH (09:00)
== END 2022-07-26 14:46 | disposition home or self-care (01) ==
LOC: ED 10:09 → SUATTDRO 11:06 → INTOOBSV 11:06 → 4W 11:06